=== PATIENT | female | born 1990 | race Caucasian/White ===

== ENCOUNTER 2018-12-01 19:26 | Emergency (ER) | payer MEDICAID ==
[~2018-12-01] VITALS: Ht 162.6 cm; Wt 66.2 kg
[~2018-12-01 19:26] MED LIST: ONDA8TAB6 PO
[2018-12-01] MEDS ORDERED: pantoprazole 40 MG vial IV ONE (20:05)
[2018-12-01] MEDS ORDERED: normal saline 1000ML IV soln IVB ONE (20:05)
[2018-12-01] MEDS ORDERED: metoclopramide 5 mg/ml inj IV ONE (20:05)
[2018-12-01 20:21] LABS: BASOPHILS # (AUTO) 0.1 X10'3 (0-0.2); BASOPHILS % (AUTO) 0.7 % (0-1); EOSINOPHILS # (AUTO) 0.2 X10'3 (0-0.9); EOSINOPHILS % (AUTO) 2.7 % (0-6); HEMATOCRIT 42.9 % (35.0-45.0); HEMOGLOBIN 14.4 g/dl (12.0-16.0); LYMPHOCYTES # (AUTO) 1.9 X10'3 (1.1-4.8); LYMPHOCYTES % (AUTO) 26.3 % (21-51); MEAN CORPUSCULAR HEMOGLOBIN 32.3 PG (27.0-31.0); MEAN CORPUSCULAR HGB CONC 33.7 g/dL (33.0-36.5); MEAN CORPUSCULAR VOLUME 95.9 FL (78-98); MONOCYTES # (AUTO) 0.4 X10'3 (0-0.9); NEUTROPHILS # (AUTO) 4.7 X10'3 (1.8-7.7); NEUTROPHILS % (AUTO) 64.3 % (42-75); PLATELET COUNT 250 X10'3 (140-440); RED BLOOD COUNT 4.47 X10'6 (4.20-5.60); RED CELL DISTRIBUTION WIDTH 12.7 % (11.5-14.5); WHITE BLOOD COUNT 7.4 X10'3 (4.5-11.0)
[2018-12-01 20:26] LABS: CLARITY,URINE CLEAR (Clear); COLOR,URINE YELLOW (Yellow); GLUCOSE, URINE NEGATIVE (Neg); KETONES,URINE NEGATIVE (Neg); LEUKOCYTE ESTERASE ,URINE NEGATIVE (Neg); NITRITES, URINE NEGATIVE (Neg); OCCULT BLOOD,URINE NEGATIVE (Neg); PROTEIN,URINE NEGATIVE (Neg); UROBILINOGEN,URINE 0.2 E.U/dL (0.2-1.0)
[2018-12-01 20:28] LABS: UA COLLECTION TYPE CLN CATCH MIDSTREAM
[2018-12-01 20:29] LABS: URINE HCG NEGATIVE (NEG)
[2018-12-01 20:38] LABS: ALANINE AMINOTRANSFERASE 44 U/L (12-78); ALBUMIN/GLOBULIN RATIO 1.1 (1.1-1.5); ALKALINE PHOSPHATASE 61 IU/L (46-116); ANION GAP 10 (8-16); ASPARTATE AMINO TRANSFERASE 21 U/L (10-37); BILIRUBIN,TOTAL 0.8 MG/DL (0.1-1.0); BLOOD UREA NITROGEN 15 MG/DL (7-18); BUN/CREATININE RATIO 15.8 (6.6-38.0); CHLORIDE 109 MMOL/L (99-107); CREATININE 0.95 MG/DL (0.40-0.90); GLUCOSE 91 MG/DL (70-104); POTASSIUM 3.7 MMOL/L (3.5-5.1); SODIUM 143 MMOL/L (135-145); TOTAL CARBON DIOXIDE 24.1 MMOL/L (24-32); TOTAL PROTEIN 7.6 G/DL (6.4-8.2); eGFR 71 ML/MIN
[2018-12-01] MEDS ORDERED: LIDOcaine Viscous 15ml cup PO ONE (20:45)
[2018-12-01] MEDS ORDERED: sucralfate 1 gm tablet PO ONE (20:45)
[2018-12-01] MEDS ORDERED: mag hydrox/Alum hydrox/simeth 30ml oral suspension PO ONE (20:45)
[2018-12-01] MEDS ORDERED: PANT-47 PO (21:03)
[2018-12-01] MEDS ORDERED: ONDA4TAB6 PO (21:03)
[2018-12-01 21:10] VITALS: BP 115/60
[2019-01-08] MEDS ORDERED: CETI10TA18 PO (12:47)
[2019-01-08] MEDS ORDERED: HYDR50TA65 PO (12:47)
[2019-01-08] MEDS ORDERED: FLUT16SP NAS (12:47)
[2019-01-08] MEDS ORDERED: ESCI20TA38 PO (12:47)
[2019-01-08] MEDS ORDERED: MULT-933 PO (12:47)
[2019-01-08] MEDS ORDERED: ALUM35SO TP (12:47)
[2019-01-08] MEDS ORDERED: ACET-2971 PO (12:47)
[2019-01-08] MEDS ORDERED: DICLOFENAC GEL TP (12:47)
[2019-01-08] MEDS ORDERED: [UNRECOGNIZED DRUG - CODE] (12:47)
[2019-01-08] MEDS ORDERED: GABA-534 PO (12:47)
== END 2018-12-01 21:13 | disposition home or self-care (01) ==
LOC: ER 19:26
DX: K29.70 Gastritis, unspecified, without bleeding (principal); F12.90 Cannabis use, unspecified, uncomplicated
CPT/HCPCS: 36415; 80053; 81003; 81025; 85025; 85610; 96361; 96374; 96375; 99284; C9113; J2765; J7030

== ENCOUNTER 2018-12-03 17:20 | Emergency (ER) | payer MEDICAID ==
[~2018-12-03] VITALS: Ht 162.6 cm; Wt 68.2 kg
[~2018-12-03 17:20] MED LIST changes: +ONDA4TAB6 PO; +PANT-47 PO
[2018-12-03] MEDS ORDERED: normal saline 1000ML IV soln IVB ONE (17:40)
[2018-12-03] MEDS ORDERED: morphine 4 MG/ML inj SYRINge IV PRN (17:40)
[2018-12-03] MEDS ORDERED: ondansetron/PF 4mg/2ml inj IV ONE (17:40)
[2018-12-03 18:10] LABS: BASOPHILS # (AUTO) 0.1 X10'3 (0-0.2); BASOPHILS % (AUTO) 0.7 % (0-1); EOSINOPHILS # (AUTO) 0.2 X10'3 (0-0.9); EOSINOPHILS % (AUTO) 2.3 % (0-6); HEMATOCRIT 41.8 % (35.0-45.0); HEMOGLOBIN 14.2 g/dl (12.0-16.0); LYMPHOCYTES # (AUTO) 2.9 X10'3 (1.1-4.8); LYMPHOCYTES % (AUTO) 33.9 % (21-51); MEAN CORPUSCULAR HEMOGLOBIN 32.2 PG (27.0-31.0); MEAN CORPUSCULAR HGB CONC 34.1 g/dL (33.0-36.5); MEAN CORPUSCULAR VOLUME 94.5 FL (78-98); MEAN PLATELET VOLUME 7.7 FL (7.4-10.4); MONOCYTES # (AUTO) 0.5 X10'3 (0-0.9); MONOCYTES % (AUTO) 6.4 % (2-12); NEUTROPHILS # (AUTO) 4.9 X10'3 (1.8-7.7); NEUTROPHILS % (AUTO) 56.7 % (42-75); PLATELET COUNT 268 X10'3 (140-440); RED BLOOD COUNT 4.42 X10'6 (4.20-5.60); RED CELL DISTRIBUTION WIDTH 12.5 % (11.5-14.5); WHITE BLOOD COUNT 8.6 X10'3 (4.5-11.0)
[2018-12-03 18:22] LABS: ALANINE AMINOTRANSFERASE 39 U/L (12-78); ALBUMIN 4.2 G/DL (3.4-5.0); ALBUMIN/GLOBULIN RATIO 1.2 (1.1-1.5); ALKALINE PHOSPHATASE 54 IU/L (46-116); ANION GAP 9 (8-16); ASPARTATE AMINO TRANSFERASE 18 U/L (10-37); BILIRUBIN,TOTAL 0.5 MG/DL (0.1-1.0); BLOOD UREA NITROGEN 11 MG/DL (7-18); BUN/CREATININE RATIO 10.5 (6.6-38.0); CALCIUM 9.2 MG/DL (8.5-10.1); CHLORIDE 107 MMOL/L (99-107); CREATININE 1.05 MG/DL (0.40-0.90); GLUCOSE 111 MG/DL (70-104); LIPASE 165 U/L (73-393); SODIUM 143 MMOL/L (135-145); TOTAL CARBON DIOXIDE 26.7 MMOL/L (24-32); TOTAL PROTEIN 7.7 G/DL (6.4-8.2); eGFR 63 ML/MIN
[2018-12-03 18:36] LABS: CLARITY,URINE CLEAR (Clear); COLOR,URINE YELLOW (Yellow); GLUCOSE, URINE NEGATIVE (Neg); KETONES,URINE NEGATIVE (Neg); LEUKOCYTE ESTERASE ,URINE NEGATIVE (Neg); NITRITES, URINE NEGATIVE (Neg); OCCULT BLOOD,URINE NEGATIVE (Neg); PH,URINE 5.5 (4.8-8.0); PROTEIN,URINE NEGATIVE (Neg); UROBILINOGEN,URINE 0.2 E.U/dL (0.2-1.0)
[2018-12-03 18:39] LABS: UA COLLECTION TYPE CLN CATCH MIDSTREAM
[2018-12-03] MEDS ORDERED: mag hydrox/Alum hydrox/simeth 30ml oral suspension PO ONE (19:25)
[2018-12-03] MEDS ORDERED: famotidine/PF 10 mg/ml inj IV ONE (19:25)
[2018-12-03] MEDS ORDERED: morphine 4 MG/ML inj SYRINge IV ONE (19:25)
[2018-12-03] MEDS ORDERED: LIDOcaine Viscous 15ml cup PO ONE (19:25)
[2018-12-03] MEDS ORDERED: sucralfate 1 gm tablet PO ONE (19:25)
[2018-12-03] MEDS ORDERED: HYDR-4383 PO (19:55)
[2018-12-03 20:16] VITALS: BP 129/72
[2019-01-08] MEDS ORDERED: FLUT16SP NAS (12:47)
[2019-01-08] MEDS ORDERED: GABA-534 PO (12:47)
[2019-01-08] MEDS ORDERED: ACET-2971 PO (12:47)
[2019-01-08] MEDS ORDERED: HYDR50TA65 PO (12:47)
[2019-01-08] MEDS ORDERED: [UNRECOGNIZED DRUG - CODE] (12:47)
[2019-01-08] MEDS ORDERED: MULT-933 PO (12:47)
[2019-01-08] MEDS ORDERED: ALUM35SO TP (12:47)
[2019-01-08] MEDS ORDERED: DICLOFENAC GEL TP (12:47)
[2019-01-08] MEDS ORDERED: ESCI20TA38 PO (12:47)
[2019-01-08] MEDS ORDERED: CETI10TA18 PO (12:47)
== END 2018-12-03 20:17 | disposition home or self-care (01) ==
LOC: ER 17:20
DX: R10.13 Epigastric pain (principal); R10.11 Right upper quadrant pain; R11.2 Nausea with vomiting, unspecified; R19.7 Diarrhea, unspecified; F12.90 Cannabis use, unspecified, uncomplicated; Z98.890 Other specified postprocedural states; Z79.899 Other long term (current) drug therapy
CPT/HCPCS: 36415; 71045; 74176; 80053; 81003; 83690; 85025; 96361; 96374; 96375; 96376; 99284; J2270; J2405; J3490; J7030

== ENCOUNTER 2018-12-08 12:28 | Emergency (ER) | payer MEDICAID ==
[~2018-12-08] VITALS: Ht 162.6 cm; Wt 65.2 kg
[~2018-12-08 12:28] MED LIST changes: +HYDR-4383 PO
[2018-12-08] MEDS ORDERED: ondansetron/PF 4mg/2ml inj IV ONE (13:55)
[2018-12-08] MEDS ORDERED: normal saline 1000ML IV soln IVB ONE (13:55)
[2018-12-08 14:04] LABS: CLARITY,URINE SLIGHTLY CLOUDY (Clear); COLOR,URINE YELLOW (Yellow); GLUCOSE, URINE NEGATIVE (Neg); KETONES,URINE NEGATIVE (Neg); LEUKOCYTE ESTERASE ,URINE NEGATIVE (Neg); NITRITES, URINE NEGATIVE (Neg); OCCULT BLOOD,URINE NEGATIVE (Neg); PROTEIN,URINE NEGATIVE (Neg); UROBILINOGEN,URINE 0.2 E.U/dL (0.2-1.0)
[2018-12-08 14:05] LABS: URINE HCG NEGATIVE (NEG)
[2018-12-08 14:07] LABS: UA COLLECTION TYPE CLN CATCH MIDSTREAM
[2018-12-08 14:11] LABS: BASOPHILS # (AUTO) 0.1 X10'3 (0-0.2); BASOPHILS % (AUTO) 0.7 % (0-1); EOSINOPHILS # (AUTO) 0.1 X10'3 (0-0.9); EOSINOPHILS % (AUTO) 1.2 % (0-6); HEMATOCRIT 43.5 % (35.0-45.0); HEMOGLOBIN 14.6 g/dl (12.0-16.0); LYMPHOCYTES # (AUTO) 1.9 X10'3 (1.1-4.8); MEAN CORPUSCULAR HEMOGLOBIN 32.3 PG (27.0-31.0); MEAN CORPUSCULAR HGB CONC 33.6 g/dL (33.0-36.5); MEAN CORPUSCULAR VOLUME 96.1 FL (78-98); MONOCYTES # (AUTO) 0.4 X10'3 (0-0.9); NEUTROPHILS % (AUTO) 67.1 % (42-75); PLATELET COUNT 268 X10'3 (140-440); RED BLOOD COUNT 4.53 X10'6 (4.20-5.60); RED CELL DISTRIBUTION WIDTH 12.7 % (11.5-14.5); WHITE BLOOD COUNT 7.4 X10'3 (4.5-11.0)
[2018-12-08 14:19] LABS: BACTERIA,URINE FEW /HPF (Neg); COARSE GRANULAR CAST 0-3 /LPF (NEGATIVE); MUCUS STRANDS MODERATE /LPF (Neg); RBC,URINE NONE SEEN /HPF (0-2); SQUAMOUS EPITHELIAL CELL,UR FEW /LPF (FEW); WBC,URINE 0-4 /HPF (0-4)
[2018-12-08] MEDS: morphine 4 MG/ML inj SYRINge IV PRN ×2 (14:20→15:03)
[2018-12-08 14:26] LABS: ALANINE AMINOTRANSFERASE 24 U/L (12-78); ALBUMIN/GLOBULIN RATIO 1.3 (1.1-1.5); ALKALINE PHOSPHATASE 59 IU/L (46-116); ANION GAP 11 (8-16); ASPARTATE AMINO TRANSFERASE 14 U/L (10-37); BILIRUBIN,TOTAL 0.4 MG/DL (0.1-1.0); BLOOD UREA NITROGEN 14 MG/DL (7-18); BUN/CREATININE RATIO 15.4 (6.6-38.0); CALCIUM 9.3 MG/DL (8.5-10.1); CHLORIDE 108 MMOL/L (99-107); CREATININE 0.91 MG/DL (0.40-0.90); GLUCOSE 92 MG/DL (70-104); LIPASE 111 U/L (73-393); POTASSIUM 3.9 MMOL/L (3.5-5.1); SODIUM 143 MMOL/L (135-145); TOTAL CARBON DIOXIDE 24.2 MMOL/L (24-32); TOTAL PROTEIN 7.2 G/DL (6.4-8.2); eGFR 74 ML/MIN
[2018-12-08] MEDS ORDERED: ONDA4TAB12 PO (15:18)
[2018-12-08 15:34] VITALS: BP 144/58
[2019-01-08] MEDS ORDERED: [UNRECOGNIZED DRUG - CODE] (12:47)
[2019-01-08] MEDS ORDERED: ACET-2971 PO (12:47)
[2019-01-08] MEDS ORDERED: MULT-933 PO (12:47)
[2019-01-08] MEDS ORDERED: ESCI20TA38 PO (12:47)
[2019-01-08] MEDS ORDERED: CETI10TA18 PO (12:47)
[2019-01-08] MEDS ORDERED: ALUM35SO TP (12:47)
[2019-01-08] MEDS ORDERED: FLUT16SP NAS (12:47)
[2019-01-08] MEDS ORDERED: GABA-534 PO (12:47)
[2019-01-08] MEDS ORDERED: HYDR50TA65 PO (12:47)
[2019-01-08] MEDS ORDERED: DICLOFENAC GEL TP (12:47)
== END 2018-12-08 15:35 | disposition home or self-care (01) ==
LOC: ER 12:29
DX: K29.70 Gastritis, unspecified, without bleeding (principal); F12.90 Cannabis use, unspecified, uncomplicated; Z79.899 Other long term (current) drug therapy
CPT/HCPCS: 36415; 76700; 80053; 81001; 81025; 83690; 85025; 96361; 96374; 96375; 96376; 99284; J2270; J2405; J7030

== ENCOUNTER 2019-01-13 05:56 | Inpatient (IN) | payer MEDICAID ==
--- NOTE | 2018-04-17 18:10 | NUR ---
Patient in room [facility]. I have received report from DREA Mehta and had the opportunity to ask questions and assume patient care. Addendum: 01/16/19 at 0644 by Luis Enrique Hernandez RN wrong time, 01/15/19 @ 4907
[2019-01-08 11:58] LABS: BASOPHILS # (AUTO) 0.1 X10'3 (0-0.2); EOSINOPHILS # (AUTO) 0.5 X10'3 (0-0.9); EOSINOPHILS % (AUTO) 7.1 % (0-6); LYMPHOCYTES # (AUTO) 1.8 X10'3 (1.1-4.8); LYMPHOCYTES % (AUTO) 26.5 % (21-51); MEAN CORPUSCULAR HEMOGLOBIN 31.8 PG (27.0-31.0); MEAN CORPUSCULAR HGB CONC 33.7 g/dL (33.0-36.5); MEAN CORPUSCULAR VOLUME 94.2 FL (78-98); MEAN PLATELET VOLUME 8.5 FL (7.4-10.4); MONOCYTES # (AUTO) 0.6 X10'3 (0-0.9); MONOCYTES % (AUTO) 9.2 % (2-12); NEUTROPHILS # (AUTO) 3.9 X10'3 (1.8-7.7); NEUTROPHILS % (AUTO) 56.2 % (42-75); PRE OP HEMATOCRIT 41.9 % (35.0-45.0); PRE OP HEMOGLOBIN 14.1 g/dL (12.0-16.0); PRE OP PLATELET COUNT 209 X10'3 (140-440); RED BLOOD COUNT 4.45 X10'6 (4.20-5.60); RED CELL DISTRIBUTION WIDTH 12.4 % (11.5-14.5)
[2019-01-08 12:12] LABS: ALBUMIN 3.7 G/DL (3.4-5.0); ALBUMIN/GLOBULIN RATIO 1.2 (1.1-1.5); ALKALINE PHOSPHATASE 52 IU/L (46-116); BLOOD UREA NITROGEN 9 MG/DL (7-18); BUN/CREATININE RATIO 9.5 (6.6-38.0); CHLORIDE 107 MMOL/L (99-107); CREATININE 0.95 MG/DL (0.40-0.90); PRE OP ALT 23 U/L (30-65); PRE OP ANION GAP 10 (8-16); PRE OP AST 15 U/L (10-37); PRE OP BILIRUB, TOTAL 0.6 MG/DL (0.0-1.0); PRE OP GLUCOSE 91 MG/DL (70-104); PRE OP SODIUM 144 MMOL/L (135-145); TOTAL CARBON DIOXIDE 27.5 MMOL/L (24-32); TOTAL PROTEIN 6.7 G/DL (6.4-8.2); eGFR 71 ML/MIN
[2019-01-08 12:42] LABS: CLARITY,URINE CLEAR (Clear); COLOR,URINE YELLOW (Yellow); GLUCOSE, URINE NEGATIVE (Neg); KETONES,URINE NEGATIVE (Neg); LEUKOCYTE ESTERASE ,URINE NEGATIVE (Neg); NITRITES, URINE NEGATIVE (Neg); OCCULT BLOOD,URINE NEGATIVE (Neg); PH,URINE 6.5 (4.8-8.0); PROTEIN,URINE NEGATIVE (Neg); UROBILINOGEN,URINE 0.2 E.U/dL (0.2-1.0)
[2019-01-08 12:45] LABS: UA COLLECTION TYPE CLN CATCH MIDSTREAM
[~2019-01-13] VITALS: Ht 162.6 cm; Wt 67.0 kg
[2019-01-13] VITALS (19 sets, daily range): BP systolic 101–137; BP diastolic 37–60
[~2019-01-13 05:56] MED LIST changes: +ACET-2971 PO; +ALUM35SO TP; +CETI10TA18 PO; +DICLOFENAC GEL TP; +ESCI20TA38 PO; +FLUT16SP NAS; +GABA-534 PO; -HYDR-4383 PO; +HYDR50TA65 PO; +MULT-933 PO; -ONDA4TAB6 PO; -ONDA8TAB6 PO; -PANT-47 PO; +[UNRECOGNIZED DRUG - CODE]; +albuterol 2.5 MG/3 ML nebule NEB ONE; +cefazolin/dext.iso 2gm/50ml 50 ML IV ONE; +famotidine 20mg tablet PO ONE; +ringers solution, lacted 1,000 ML IV SCH
[2019-01-13] MEDS ORDERED: LIDOcaine 1% (10mg/ml) 2ml vial ONE (06:31)
[2019-01-13] MEDS ORDERED: BUPIVAcaine 0.5% inj/PF 30 ML ONE ×2 (08:12→09:07)
[2019-01-13] MEDS ORDERED: propofol inj 20 ML IV ONE (08:39)
[2019-01-13] MEDS ORDERED: sevoflurane 250ml liquid IH ONE (08:39)
[2019-01-13] MEDS ORDERED: midazolam 2 mg/2 ml injection ONE (08:39)
[2019-01-13] MEDS ORDERED: fentaNYL /PF 50mcg/ml 5ml ampule ONE (08:39)
[2019-01-13] MEDS ORDERED: ringers solution, lacted 1,000 ML IV SCH (08:42)
[2019-01-13] MEDS ORDERED: proCHLORperazine 10 MG/2 ml inj IV PRN (08:45)
[2019-01-13] MEDS ORDERED: meperidine/PF 25mg/ml syringe IV PRN ×2 (08:45)
[2019-01-13] MEDS ORDERED: morphine 4 MG/ML inj SYRINge IV PRN ×2 (08:45)
[2019-01-13] MEDS ORDERED: ondansetron/PF 4mg/2ml inj IV PRN (08:45)
[2019-01-13] MEDS ORDERED: dexamethasone sod phosphate 4mg/ml inj. ONE (08:52)
[2019-01-13] MEDS ORDERED: ondansetron/PF 4mg/2ml inj ONE (10:08)
[2019-01-13] MEDS ORDERED: acetaminophen 1,000mg/100ml IV 100 ML IV ONE (10:11)
[2019-01-13] MEDS ORDERED: neomy sulf/bacitrac zn/polymixin b oint 14.2 gm tube TP ONE (10:24)
--- NOTE | 2019-01-13 10:34 | NUR ---
Received from OR via , accompanied by Anesthesiologist LAURA and report given by Anesthesiolgist. AWAKE IN NO RESP DISTRESS SKIN WARM AND DRY HOB ELEVATED, ABD SOFT NO DRAINAGE FROM RECTUM. DSG DI, CO PAIN.
[2019-01-13] MEDS: meperidine/PF 25mg/ml syringe IV PRN ×3 (10:45→11:10)
[2019-01-13] MEDS ORDERED: naloxone 0.4 mg/ml inj IV PRN (11:25)
[2019-01-13] MEDS: Potassium Cl inj 20 MEQ in ringers solution, lacted 1,000 ML IV SCH ×2 (11:25→22:10)
--- NOTE | 2019-01-13 11:30 | NUR ---
REPORT FROM SHONNA IN RECOVERY
[2019-01-13] MEDS: HYDROmorphone/NS 1 mg/ml CADD 50 ML IV SCH ×7 (11:56→23:00)
--- NOTE | 2019-01-13 12:10 | NUR ---
PATIENT ON UNIT, VITALS STABLE, SKIN GOOD, ORIENTED PATIENT TO ROOM
--- NOTE | 2019-01-13 12:14 | NUR ---
Report called to receiving nurse. Transferred via BED Belongings . Special Issues communicated to receiving nurse.AWAKE VS WNL PAIN DECREASED AFTER CADD MED. ABD SOFT NO DRAINAGE RECTAL AREA. SCDS ON. TO ROOM 354
[2019-01-13] MEDS: DICLOFENAC TP SCH ×3 (13:00→20:17)
[2019-01-13] MEDS: cetirizine 10mg tablet PO SCH ×2 (13:20→20:18)
[2019-01-13] MEDS: gabapentin 400mg capsule PO SCH ×2 (15:19→23:11)
[2019-01-13] MEDS: ceFAZolin 1GM/D5W- ADD-VANTAGE 50 ML IV SCH ×2 (15:19→23:11)
--- NOTE | 2019-01-13 18:55 | NUR ---
Problems reprioritized. Patient report given, questions answered & plan of care reviewed with
[2019-01-13] MEDS: ESCITALOPRAM OXALATE 5 MG TABLET PO SCH (20:19)
[2019-01-13] MEDS: ondansetron/PF 4mg/2ml inj IV PRN (22:05)
[2019-01-13] MEDS: Melatonin 3mg tablet PO PRN (23:12)
[2019-01-14] VITALS: BP 109/54
[2019-01-14] MEDS: HYDROmorphone/NS 1 mg/ml CADD 50 ML IV SCH ×12 (01:00→23:00)
[2019-01-14] MEDS: Potassium Cl inj 20 MEQ in ringers solution, lacted 1,000 ML IV SCH ×3 (03:35→20:38)
--- NOTE | 2019-01-14 06:00 | NUR ---
RECEIVED REPORT FROM ELAINE SHEPARD
--- NOTE | 2019-01-14 06:33 | NUR ---
Problems reprioritized. Patient report given, questions answered & plan of care reviewed with Janine SHEPARD.
[2019-01-14 07:00] VITALS: BP 97/50
[2019-01-14] MEDS: DICLOFENAC TP SCH ×2 (08:00→13:00)
[2019-01-14] MEDS ORDERED: ESCITALOPRAM OXALATE 5 MG TABLET PO SCH (08:00)
[2019-01-14] MEDS: gabapentin 400mg capsule PO SCH ×3 (08:40→23:11)
[2019-01-14] MEDS: cetirizine 10mg tablet PO SCH ×3 (08:40→20:38)
[2019-01-14] MEDS: ceFAZolin 1GM/D5W- ADD-VANTAGE 50 ML IV SCH (08:40)
[2019-01-14 11:00] VITALS: BP 123/50
[2019-01-14] MEDS: ondansetron/PF 4mg/2ml inj IV PRN ×2 (11:13→20:39)
[2019-01-14] MEDS: benzocaine/benzethon 30gm ointment RC PRN ×2 (14:41→20:39)
--- NOTE | 2019-01-14 18:30 | NUR ---
Problems reprioritized. Patient report given, questions answered & plan of care reviewed with alvin england.
--- NOTE | 2019-01-14 18:35 | NUR ---
Patient in room [facility] 354. I have received report from Janine SHEPARD and had the opportunity to ask questions and assume patient care.
[2019-01-14 20:00] VITALS: BP 118/55
[2019-01-14] MEDS: Melatonin 3mg tablet PO PRN (20:38)
[2019-01-14] MEDS: ESCITALOPRAM OXALATE 5 MG TABLET PO SCH (20:39)
[2019-01-15] VITALS: BP 105/54
[2019-01-15] MEDS: HYDROmorphone/NS 1 mg/ml CADD 50 ML IV SCH ×6 (01:00→11:00)
[2019-01-15] MEDS: Potassium Cl inj 20 MEQ in ringers solution, lacted 1,000 ML IV SCH ×3 (03:50→15:04)
--- NOTE | 2019-01-15 06:42 | NUR ---
Problems reprioritized. Patient report given, questions answered & plan of care reviewed with Janine SHEPARD.
--- NOTE | 2019-01-15 06:48 | NUR ---
Patient in room [facility] 354. I have received report from ELAINE SHEPARD and had the opportunity to ask questions and assume patient care.
[2019-01-15 07:21] VITALS: BP 127/79
[2019-01-15] MEDS: gabapentin 400mg capsule PO SCH ×3 (07:51→23:10)
[2019-01-15] MEDS: benzocaine/benzethon 30gm ointment RC PRN ×3 (07:52→21:23)
[2019-01-15] MEDS: cetirizine 10mg tablet PO SCH ×3 (07:52→21:22)
[2019-01-15] MEDS: ondansetron/PF 4mg/2ml inj IV PRN ×2 (08:59→22:28)
[2019-01-15] MEDS: HYDROcodone/acetaminophen 5mg/325mg tablet PO PRN (16:59)
[2019-01-15] MEDS: CADD PCA waste documentation MC PRN ×2 (17:08→17:10)
[2019-01-15 18:00] VITALS: BP 131/54
--- NOTE | 2019-01-15 18:36 | NUR ---
GAVE REPORT TO TONYA SHEPARD
[2019-01-15] MEDS: HYDROcodone/acetaminophen 10/325mg tab PO PRN (21:22)
[2019-01-15] MEDS: ESCITALOPRAM OXALATE 5 MG TABLET PO SCH (21:22)
[2019-01-16] VITALS: BP 106/60
[2019-01-16] MEDS: Potassium Cl inj 20 MEQ in ringers solution, lacted 1,000 ML IV SCH (02:44)
--- NOTE | 2019-01-16 06:35 | NUR ---
Patient in room [facility]. I have received report from DREA Fowler and had the opportunity to ask questions and assume patient care.
--- NOTE | 2019-01-16 06:44 | NUR ---
Problems reprioritized. Patient report given, questions answered & plan of care reviewed with DREA Caba.
[2019-01-16 07:00] VITALS: BP 120/62
[2019-01-16] MEDS: cetirizine 10mg tablet PO SCH ×3 (08:00→20:27)
[2019-01-16] MEDS: HYDROcodone/acetaminophen 10/325mg tab PO PRN ×3 (08:00→20:27)
[2019-01-16] MEDS: gabapentin 400mg capsule PO SCH ×2 (08:00→17:04)
[2019-01-16] MEDS: benzocaine/benzethon 30gm ointment RC PRN ×3 (09:24→22:57)
[2019-01-16 11:00] VITALS: BP 96/47
[2019-01-16] MEDS: ketorolac trometh. 30mg/ml inj. IV PRN ×2 (13:03→19:13)
[2019-01-16] MEDS: hydrOXYzine 25 MG tablet PO PRN (17:04)
[2019-01-16 18:00] VITALS: BP 104/46
[2019-01-16] MEDS: fluticasone nasal spray 16GM bottle NS SCH (20:46)
[2019-01-16] MEDS: ESCITALOPRAM OXALATE 5 MG TABLET PO SCH (20:46)
[2019-01-17] VITALS: BP 96/46
[2019-01-17] MEDS: gabapentin 400mg capsule PO SCH ×4 (00:26→23:52)
--- NOTE | 2019-01-17 06:31 | NUR ---
Patient in room [facility]. I have received report from DREA Fowler and had the opportunity to ask questions and assume patient care.
--- NOTE | 2019-01-17 06:42 | NUR ---
Problems reprioritized. Patient report given, questions answered & plan of care reviewed with DREA Caba.
[2019-01-17 07:00] VITALS: BP 91/52
[2019-01-17] MEDS: cetirizine 10mg tablet PO SCH ×3 (08:39→20:06)
[2019-01-17] MEDS: fluticasone nasal spray 16GM bottle NS SCH ×2 (08:39→20:07)
[2019-01-17] MEDS: multivitamins, therapeutics tablet PO SCH (08:39)
[2019-01-17] MEDS: ketorolac trometh. 30mg/ml inj. IV PRN ×3 (08:41→23:52)
[2019-01-17] MEDS: HYDROcodone/acetaminophen 10/325mg tab PO PRN ×3 (11:04→20:06)
[2019-01-17 11:30] VITALS: BP 104/57
[2019-01-17] MEDS: hydrOXYzine 25 MG tablet PO PRN ×2 (17:39→23:57)
[2019-01-17] MEDS: benzocaine/benzethon 30gm ointment RC PRN ×2 (17:45→21:28)
--- NOTE | 2019-01-17 18:40 | NUR ---
Problems reprioritized. Patient report given, questions answered & plan of care reviewed with DREA Fowler.
[2019-01-17 19:00] VITALS: BP 108/62
[2019-01-17] MEDS: ESCITALOPRAM OXALATE 5 MG TABLET PO SCH (20:07)
[2019-01-17] MEDS: diatr meglu/diatrizoate 30ml oral sol.-(3 dose) bottle PO SCH (20:07)
[2019-01-18] VITALS: BP 103/44
--- NOTE | 2019-01-18 06:19 | NUR ---
Problems reprioritized. Patient report given, questions answered & plan of care reviewed with DREA Huitron.
[2019-01-18] MEDS: fluticasone nasal spray 16GM bottle NS SCH ×2 (07:17→19:33)
[2019-01-18] MEDS: diatr meglu/diatrizoate 30ml oral sol.-(3 dose) bottle PO SCH ×2 (07:17→10:11)
[2019-01-18] MEDS: gabapentin 400mg capsule PO SCH ×2 (07:18→15:12)
[2019-01-18] MEDS: cetirizine 10mg tablet PO SCH ×3 (07:18→21:19)
[2019-01-18] MEDS: multivitamins, therapeutics tablet PO SCH (07:18)
[2019-01-18] MEDS: HYDROcodone/acetaminophen 10/325mg tab PO PRN ×3 (07:25→19:33)
[2019-01-18 07:32] VITALS: BP 90/25
--- NOTE | 2019-01-18 07:32 | NUR ---
Pt. sleeping while BP was taken with automatic cuff. ACCOUNTS MANAGER did report. Pt. asymptomatic. Will reassess at a later time. Addendum: 01/18/19 at 0733 by Elana Pimentel RN Amended: Links added.
--- NOTE | 2019-01-18 11:00 | NUR ---
CALLED SCOTT IN REGARD TO CT RESULTS, DIET, AND NO RECENT LABS. AWAITING RESPONSE.
[2019-01-18 12:00] VITALS: BP 96/51
[2019-01-18] MEDS: hydrOXYzine 25 MG tablet PO PRN (12:03)
[2019-01-18] MEDS: HYDROcodone/acetaminophen 5mg/325mg tablet PO PRN (15:13)
--- NOTE | 2019-01-18 15:58 | NUR ---
Gave report to Megha SHEPARD
--- NOTE | 2019-01-18 16:00 | NUR ---
Patient in room [facility]. I have received report from Elana SHEPARD and had the opportunity to ask questions and assume patient care. Per Dr Minor pt is to have Sitz baths X4. Pt declined one offered at the start of my shift. She only wanted her norco and gabapentin. She is very regimented with her pain meds and does not like to wait.
--- NOTE | 2019-01-18 16:01 | NUR ---
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 Pt NPO this AM PO 50-75% avg low-residue meals previously. Returned to low-residue/mechanical soft chopped diet this afternoon pending PO tonight. LBM 01/18 per RN today. Labs WNL receiving MVI post-op. Will continue to monitor. Rec: 1. continue low-residue/mechanical soft/chopped per MD 2. monitor for ONS needs if PO declines 3. wt per rx Addendum: 01/18/19 at [address] Amended: Links added.
[2019-01-18] MEDS: benzocaine/benzethon 30gm ointment RC PRN ×2 (17:01→21:21)
--- NOTE | 2019-01-18 18:35 | NUR ---
Problems reprioritized. Patient report given, questions answered & plan of care reviewed with Sona SHEPARD.
--- NOTE | 2019-01-18 18:58 | NUR ---
Patient in room [facility]. I have received report from Megha SHEPARD and had the opportunity to ask questions and assume patient care. Pt is in bed with her support dog and sister at bedside. No signs of distress, will continue to monitor.
[2019-01-18 20:00] VITALS: BP 103/43
[2019-01-18] MEDS: Melatonin 3mg tablet PO PRN (21:19)
[2019-01-18] MEDS: ESCITALOPRAM OXALATE 5 MG TABLET PO SCH (21:20)
[2019-01-19] VITALS: BP 90/55
[2019-01-19] MEDS: gabapentin 400mg capsule PO SCH ×2 (00:24→07:07)
[2019-01-19] MEDS: HYDROcodone/acetaminophen 10/325mg tab PO PRN ×3 (00:24→11:25)
[2019-01-19] MEDS: ondansetron/PF 4mg/2ml inj IV PRN (02:14)
[2019-01-19 06:26] LABS: BASOPHILS % (AUTO) 0.2 % (0-1); EOSINOPHILS # (AUTO) 0.1 X10'3 (0-0.9); EOSINOPHILS % (AUTO) 0.9 % (0-6); HEMATOCRIT 38.9 % (35.0-45.0); HEMOGLOBIN 13.2 g/dl (12.0-16.0); LYMPHOCYTES % (AUTO) 6.2 % (21-51); MEAN CORPUSCULAR HEMOGLOBIN 31.2 PG (27.0-31.0); MEAN CORPUSCULAR HGB CONC 33.8 g/dL (33.0-36.5); MEAN CORPUSCULAR VOLUME 92.2 FL (78-98); MEAN PLATELET VOLUME 8.8 FL (7.4-10.4); MONOCYTES # (AUTO) 1.4 X10'3 (0-0.9); MONOCYTES % (AUTO) 8.7 % (2-12); NEUTROPHILS # (AUTO) 13.5 X10'3 (1.8-7.7); PLATELET COUNT 237 X10'3 (140-440); RED BLOOD COUNT 4.22 X10'6 (4.20-5.60); RED CELL DISTRIBUTION WIDTH 11.9 % (11.5-14.5)
--- NOTE | 2019-01-19 06:29 | NUR ---
Problems reprioritized. Patient report given, questions answered & plan of care reviewed with Savannah SHEPARD and Shayy patient care nursing assistant.
[2019-01-19 06:36] LABS: ALANINE AMINOTRANSFERASE 19 U/L (12-78); ALBUMIN 3.3 G/DL (3.4-5.0); ALBUMIN/GLOBULIN RATIO 0.9 (1.1-1.5); ALKALINE PHOSPHATASE 59 IU/L (46-116); ANION GAP 10 (8-16); ASPARTATE AMINO TRANSFERASE 15 U/L (10-37); BILIRUBIN,TOTAL 0.5 MG/DL (0.1-1.0); BLOOD UREA NITROGEN 10 MG/DL (7-18); BUN/CREATININE RATIO 10.1 (6.6-38.0); CALCIUM 8.4 MG/DL (8.5-10.1); CHLORIDE 106 MMOL/L (99-107); CREATININE 0.99 MG/DL (0.40-0.90); GLUCOSE 118 MG/DL (70-104); POTASSIUM 3.9 MMOL/L (3.5-5.1); SODIUM 141 MMOL/L (135-145); eGFR 67 ML/MIN
--- NOTE | 2019-01-19 06:48 | NUR ---
Patient in room [facility]. I have received report from DREA Magallanes and had the opportunity to ask questions and assume patient care.
[2019-01-19] MEDS: multivitamins, therapeutics tablet PO SCH (07:07)
[2019-01-19] MEDS: cetirizine 10mg tablet PO SCH (07:08)
[2019-01-19 08:00] VITALS: BP 101/50
[2019-01-19] MEDS: fluticasone nasal spray 16GM bottle NS SCH (10:17)
[2019-01-19] MEDS: benzocaine/benzethon 30gm ointment RC PRN (10:22)
[2019-01-19] MEDS ORDERED: HYDR-4353 PO (12:10)
--- NOTE | 2019-01-19 12:29 | NUR ---
Discharge completed on nursing end. IV discontinued. All education completed with acknowledgement from patient of understanding, sitz bath provided. [place] medication scrip given to patient.
--- NOTE | 2019-01-19 13:27 | NUR ---
All belongings taken home with patient. Addendum: 01/19/19 at 1327 by Ani Stoddard RN Amended: Links added.
== END 2019-01-19 12:42 | disposition home or self-care (01) | DRG 231 ==
LOC: PAS 05:56 → SUR 3N 11:25
PROVIDERS: ADMIT Surgery; ATTEND Surgery
PROC: 0DTP0ZZ Resection of Rectum, Open Approach (ICD-10-PCS; principal; 2019-01-13 08:39)
DX: K62.3 Rectal prolapse (principal)
CPT/HCPCS: 36415; 74176; 80053; 81003; 82948; 85025; 86885; 86900; 86901; 86920; A4215; A4618; A6224; A6449; A7000; G0378; J0131; J0690; J1100; J1170; J1885; J2001; J2175; J2250; J2270; J2405; J2704; J3010; J3480; J7120; Q9963; Z7610

== ENCOUNTER 2019-01-23 11:59 | Inpatient (IN) | payer MEDICAID ==
[~2019-01-23] VITALS: Ht 162.6 cm; Wt 63.6 kg
[~2019-01-23 11:59] MED LIST changes: +HYDR-4353 PO; -albuterol 2.5 MG/3 ML nebule NEB ONE; -cefazolin/dext.iso 2gm/50ml 50 ML IV ONE; -famotidine 20mg tablet PO ONE; -ringers solution, lacted 1,000 ML IV SCH
[2019-01-23] MEDS ORDERED: morphine 4 MG/ML inj SYRINge IV ONE ×2 (12:35→15:35)
[2019-01-23] MEDS ORDERED: ondansetron/PF 4mg/2ml inj IV ONE (12:35)
[2019-01-23] MEDS ORDERED: normal saline 1000ml 1,000 ML IV ONE (12:40)
[2019-01-23] MEDS ORDERED: iohexol 300mg/ml 100ml inj. ONE (12:54)
[2019-01-23 13:41] LABS: BASOPHILS # (AUTO) 0.1 X10'3 (0-0.2); BASOPHILS % (AUTO) 0.8 % (0-1); EOSINOPHILS # (AUTO) 0.2 X10'3 (0-0.9); EOSINOPHILS % (AUTO) 1.8 % (0-6); HEMOGLOBIN 12.1 g/dl (12.0-16.0); MEAN CORPUSCULAR HEMOGLOBIN 31.3 PG (27.0-31.0); MEAN CORPUSCULAR HGB CONC 33.7 g/dL (33.0-36.5); MEAN CORPUSCULAR VOLUME 92.7 FL (78-98); MEAN PLATELET VOLUME 8.6 FL (7.4-10.4); MONOCYTES # (AUTO) 1.1 X10'3 (0-0.9); MONOCYTES % (AUTO) 10.9 % (2-12); NEUTROPHILS # (AUTO) 6.7 X10'3 (1.8-7.7); NEUTROPHILS % (AUTO) 66.5 % (42-75); PLATELET COUNT 310 X10'3 (140-440); RED BLOOD COUNT 3.89 X10'6 (4.20-5.60); RED CELL DISTRIBUTION WIDTH 12.1 % (11.5-14.5)
[2019-01-23 13:52] LABS: PARTIAL THROMBOPLASTIN TIME 29 SECONDS (22-32)
[2019-01-23 13:55] LABS: ALANINE AMINOTRANSFERASE 15 U/L (12-78); ALBUMIN/GLOBULIN RATIO 0.7 (1.1-1.5); ALKALINE PHOSPHATASE 67 IU/L (46-116); ANION GAP 13 (8-16); ASPARTATE AMINO TRANSFERASE 12 U/L (10-37); BILIRUBIN,TOTAL 0.3 MG/DL (0.1-1.0); BLOOD UREA NITROGEN 7 MG/DL (7-18); BUN/CREATININE RATIO 9.6 (6.6-38.0); CALCIUM 8.7 MG/DL (8.5-10.1); CHLORIDE 106 MMOL/L (99-107); CREATININE 0.73 MG/DL (0.40-0.90); GLUCOSE 101 MG/DL (70-104); POTASSIUM 3.6 MMOL/L (3.5-5.1); SODIUM 143 MMOL/L (135-145); TOTAL CARBON DIOXIDE 23.8 MMOL/L (24-32); TOTAL PROTEIN 7.2 G/DL (6.4-8.2); eGFR > 90 ML/MIN
[2019-01-23] MEDS ORDERED: CefTRIAXone/D5W-Rocephin 1gm 50 ML IV ONE (15:35)
[2019-01-23] MEDS ORDERED: CETI10TA14 PO (15:46)
[2019-01-23] MEDS ORDERED: MELA3TAB64 PO (15:55)
[2019-01-23] MEDS ORDERED: HYDR-3972 PO (15:55)
[2019-01-23] MEDS ORDERED: FLUT16SP20 NAS (15:55)
[2019-01-23] MEDS ORDERED: DICL100G15 TOP (15:56)
[2019-01-23] MEDS ORDERED: magnesium Cl slow-release 64mg tablet PO PRN (17:45)
[2019-01-23] MEDS ORDERED: magnesium 4gm in 100ml NS 100 ML IV PRN (17:45)
[2019-01-23] MEDS ORDERED: potassium Cl 20 mEq SR tablet PO PRN ×2 (17:45)
[2019-01-23] MEDS ORDERED: acetaminophen 325mg tablet PO PRN (17:45)
[2019-01-23] MEDS ORDERED: magnesium 2GM in 50ml NS 50 ML IV PRN (17:45)
[2019-01-23] MEDS ORDERED: normal saline 1000ml 1,000 ML IV SCH (17:45)
[2019-01-23] MEDS ORDERED: potassium CL 10mEq/100ml bag 100 ML IV PRN ×2 (17:45)
[2019-01-23 18:01] LABS: CLARITY,URINE CLEAR (Clear); COLOR,URINE YELLOW (Yellow); GLUCOSE, URINE NEGATIVE (Neg); KETONES,URINE 15 mg/dl (Neg); LEUKOCYTE ESTERASE ,URINE NEGATIVE (Neg); NITRITES, URINE NEGATIVE (Neg); OCCULT BLOOD,URINE NEGATIVE (Neg); PROTEIN,URINE NEGATIVE (Neg); UROBILINOGEN,URINE 0.2 E.U/dL (0.2-1.0)
[2019-01-23 18:02] LABS: UA COLLECTION TYPE CLN CATCH MIDSTREAM
[2019-01-23] MEDS: DICLOFENAC SODIUM 4 GM TOP SCH ×2 (18:55→23:38)
[2019-01-23] MEDS: hydrOXYzine 25 MG tablet PO PRN (19:01)
--- NOTE | 2019-01-23 19:46 | NUR ---
ANA WINCHESTER AWARE THAT A BED IS NEEDED
[2019-01-23] MEDS: HYDROcodone/acetaminophen 10/325mg tab PO SCH (19:55)
[2019-01-23 20:45] VITALS: BP 112/50
--- NOTE | 2019-01-23 20:45 | NUR ---
PATIENT ADMITTED TO ROOM 354C FROM ER FOR PELVIC PAIN, RECTOVAGINAL FISTULA. PLACED COMFORTABLE IN BED. VITAL SIGNS TAKEN AND RECORDED.
[2019-01-23] MEDS ORDERED: ESCITALOPRAM OXALATE 5 MG TABLET PO ONE (22:10)
[2019-01-23] MEDS: Melatonin 3mg tablet PO SCH (22:13)
[2019-01-23] MEDS: ESCITALOPRAM OXALATE 5 MG TABLET PO SCH (22:13)
[2019-01-23] MEDS: diatr meglu/diatrizoate 30ml oral sol.-(3 dose) bottle PO SCH (22:13)
[2019-01-23] MEDS: cetirizine 10mg tablet PO SCH (22:14)
[2019-01-23] MEDS: gabapentin 400mg capsule PO SCH (23:35)
[2019-01-24] VITALS (21 sets, daily range): BP systolic 106–138; BP diastolic 42–97
[2019-01-24] MEDS: DICLOFENAC SODIUM 4 GM TOP SCH ×4 (02:00→20:00)
[2019-01-24] MEDS: HYDROcodone/acetaminophen 10/325mg tab PO SCH ×4 (02:56→20:00)
[2019-01-24 06:25] LABS: BASOPHILS # (AUTO) 0.1 X10'3 (0-0.2); BASOPHILS % (AUTO) 0.8 % (0-1); EOSINOPHILS # (AUTO) 0.3 X10'3 (0-0.9); EOSINOPHILS % (AUTO) 2.9 % (0-6); HEMATOCRIT 35.4 % (35.0-45.0); HEMOGLOBIN 12.1 g/dl (12.0-16.0); LYMPHOCYTES # (AUTO) 1.8 X10'3 (1.1-4.8); LYMPHOCYTES % (AUTO) 18.4 % (21-51); MEAN CORPUSCULAR HEMOGLOBIN 31.9 PG (27.0-31.0); MEAN CORPUSCULAR HGB CONC 34.3 g/dL (33.0-36.5); MEAN CORPUSCULAR VOLUME 93.1 FL (78-98); MEAN PLATELET VOLUME 9.5 FL (7.4-10.4); MONOCYTES # (AUTO) 1.1 X10'3 (0-0.9); MONOCYTES % (AUTO) 10.8 % (2-12); NEUTROPHILS # (AUTO) 6.6 X10'3 (1.8-7.7); NEUTROPHILS % (AUTO) 67.1 % (42-75); PLATELET COUNT 315 X10'3 (140-440); RED BLOOD COUNT 3.81 X10'6 (4.20-5.60); RED CELL DISTRIBUTION WIDTH 12.2 % (11.5-14.5); WHITE BLOOD COUNT 9.8 X10'3 (4.5-11.0)
--- NOTE | 2019-01-24 06:32 | NUR ---
Problems reprioritized. Patient report given, questions answered & plan of care reviewed with AVNI RN.
--- NOTE | 2019-01-24 06:35 | NUR ---
Patient in room [facility]. I have received report from Lana Schwartz RN and had the opportunity to ask questions and assume patient care.
[2019-01-24 06:41] LABS: ALBUMIN 3.1 G/DL (3.4-5.0); ANION GAP 11 (8-16); BLOOD UREA NITROGEN 6 MG/DL (7-18); BUN/CREATININE RATIO 7.8 (6.6-38.0); CALCIUM 9.3 MG/DL (8.5-10.1); CHLORIDE 106 MMOL/L (99-107); CREATININE 0.77 MG/DL (0.40-0.90); GLUCOSE 90 MG/DL (70-104); MAGNESIUM 1.8 MG/DL (1.5-2.4); POTASSIUM 3.9 MMOL/L (3.5-5.1); SODIUM 142 MMOL/L (135-145); TOTAL CARBON DIOXIDE 25.4 MMOL/L (24-32); eGFR 90 ML/MIN
[2019-01-24] MEDS: K and/or MAG REPLACEMENT MC SCH (08:00)
[2019-01-24] MEDS: multivitamins, therapeutics tablet PO SCH (08:00)
[2019-01-24] MEDS: gabapentin 400mg capsule PO SCH ×2 (08:00→16:00)
[2019-01-24] MEDS: cetirizine 10mg tablet PO SCH ×3 (08:00→21:52)
[2019-01-24] MEDS: diatr meglu/diatrizoate 30ml oral sol.-(3 dose) bottle PO SCH (08:33)
[2019-01-24] MEDS: fluticasone nasal spray 16GM bottle NS SCH (08:34)
[2019-01-24] MEDS ORDERED: FLU VACC QS2019-20 36MOS UP/PF 60 MCG/0.5 ML SYRINGE IMVAC ONE (10:00)
[2019-01-24] MEDS ORDERED: LIDOcaine 1%/PF 5ML 10 MG/ML VIAL SQ ONE ×2 (11:05→11:10)
[2019-01-24] MEDS ORDERED: midazolam 2 mg/2 ml injection IV PRN (11:05)
[2019-01-24] MEDS ORDERED: fentaNYL/PF 50MCG/1 ML 2ML syringe IV PRN (11:05)
[2019-01-24] MEDS ORDERED: fentaNYL/PF 50MCG/1 ML 2ML syringe ONE ×2 (11:12→14:25)
[2019-01-24] MEDS ORDERED: midazolam 2 mg/2 ml injection ONE ×2 (11:12→14:25)
--- NOTE | 2019-01-24 11:15 | NUR ---
Patient reports that she could "feel something dangling" upon assessment, found sutures hanging from pt rectum. Notified Dr. Minor, per Dr. Minor, patient is safe to proceed with IR procedure for drainage of abcess.
[2019-01-24] MEDS ORDERED: ondansetron/PF 4mg/2ml inj IV ONE (11:40)
--- NOTE | 2019-01-24 12:46 | NUR ---
Patient back from IR procedure, vital signs stable 97.9F temp, BP106/52, HR 68, O2 sats 97% on room air RR 14. aunt at bedside will continue to monitor.
[2019-01-24] MEDS: hydrOXYzine 25 MG tablet PO PRN (12:56)
[2019-01-24] MEDS ORDERED: ringers solution, lacted 1,000 ML IV SCH (14:17)
[2019-01-24] MEDS ORDERED: hydrALAZINE 20mg/ml inj. IV PRN (14:20)
[2019-01-24] MEDS ORDERED: ondansetron/PF 4mg/2ml inj IV PRN (14:20)
[2019-01-24] MEDS ORDERED: labetalol 20mg/4ml (5mg/ml) syringe IV PRN (14:20)
[2019-01-24] MEDS ORDERED: HYDROmorphone inj. 0.5 MG/0.5 ML DISP.SYRIN IV PRN ×2 (14:20)
[2019-01-24] MEDS ORDERED: morphine 4 MG/ML inj SYRINge IV PRN (14:20)
[2019-01-24] MEDS ORDERED: HYDROmorphone 2mg/ml vial IV PRN (14:25)
[2019-01-24] MEDS ORDERED: rocuronium 10mg/ml inj IV ONE (14:26)
[2019-01-24] MEDS ORDERED: propofol inj 20 ML IV ONE (14:27)
[2019-01-24] MEDS ORDERED: LIDOcaine 2% (20mg/ml) 5ml vial ONE (14:27)
[2019-01-24] MEDS ORDERED: ondansetron/PF 4mg/2ml inj ONE (14:27)
[2019-01-24] MEDS ORDERED: succinylcholine 20mg/ml inj IV ONE (14:51)
[2019-01-24] MEDS ORDERED: ceFAZolin 1000mg inj ONE ×2 (15:14)
--- NOTE | 2019-01-24 15:20 | NUR ---
Called report to DREA Shirley in recovery. all questions answered.
[2019-01-24] MEDS ORDERED: sugammadex 200mg/2ml injection IV ONE (15:33)
--- NOTE | 2019-01-24 15:47 | NUR ---
Received from OR via , accompanied by Anesthesiologist DR. LOUISE and report given by Anesthesiolgist. pATIETN ARRIVE ON HOSPITAL BED, PAIN 10/10, VSS CHARTED. MORPHINE GIVEN ORDERED. PIV 20 ELIDA TO RIGHT FA INFUSING LR AT 100 ML/HR ORDERED. DIVERTING LOOP COLOSTOMY IN PLACE TO MEDIAL ABD, WITH NO S&S OF BLEEDING, NO PUT PUT NOTED. WILL CONTINUE TO MONITOR.
[2019-01-24] MEDS: morphine 4 MG/ML inj SYRINge IV PRN ×2 (15:52→16:09)
[2019-01-24] MEDS ORDERED: LORazepam 2 mg/ml vial IV ONE (15:55)
--- NOTE | 2019-01-24 16:50 | NUR ---
ALL CRITERIA FOR TRANSFER TO THE FLOOR HAS BEEN ACHIEVED. VSS. BED LOW, CALL LIGHT AND VS. SET IN PLACE. rEPORT CALLED TO EDSON RN ON SURGE ALL QUESTIONS AND CONCERNS ADDRESSED. RN PRESENT TO ACCEPT CARE. PATIENT RESTING COMFORTABLY IN BED. BELONGINGS SENT WITH PATIENT. DRESSINGS CDI.
[2019-01-24] MEDS: HYDROmorphone 1 mg/ml syringe IV PRN ×2 (17:44→21:56)
--- NOTE | 2019-01-24 19:04 | NUR ---
Problems reprioritized. Patient report given, questions answered & plan of care reviewed with Lana Schwartz RN.
--- NOTE | 2019-01-24 19:05 | NUR ---
Patient in room [facility]. I have received report from AVNI SHEPARD and had the opportunity to ask questions and assume patient care.
[2019-01-24] MEDS: normal saline 1000ml 1,000 ML IV SCH (19:30)
[2019-01-24] MEDS: ceFAZolin 1GM/D5W- ADD-VANTAGE 50 ML IV SCH (20:57)
[2019-01-24] MEDS: Melatonin 3mg tablet PO SCH (21:52)
[2019-01-24] MEDS: ESCITALOPRAM OXALATE 5 MG TABLET PO SCH (21:53)
[2019-01-25] VITALS: BP 103/55
[2019-01-25] MEDS: gabapentin 400mg capsule PO SCH ×3 (00:38→16:42)
[2019-01-25] MEDS: HYDROcodone/acetaminophen 10/325mg tab PO SCH ×2 (02:00→08:00)
[2019-01-25] MEDS: DICLOFENAC SODIUM 4 GM TOP SCH ×2 (02:00→08:00)
[2019-01-25] MEDS: normal saline 1000ml 1,000 ML IV SCH ×2 (02:51→15:53)
[2019-01-25] MEDS: HYDROmorphone 1 mg/ml syringe IV PRN ×3 (02:54→12:56)
[2019-01-25 04:00] VITALS: BP 114/53
[2019-01-25] MEDS: ceFAZolin 1GM/D5W- ADD-VANTAGE 50 ML IV SCH ×3 (04:01→16:42)
[2019-01-25] MEDS: ondansetron/PF 4mg/2ml inj IV PRN ×2 (04:06→21:51)
[2019-01-25 06:16] LABS: BASOPHILS % (AUTO) 0.2 % (0-1); EOSINOPHILS % (AUTO) 0 % (0-6); HEMATOCRIT 35.2 % (35.0-45.0); HEMOGLOBIN 11.9 g/dl (12.0-16.0); LYMPHOCYTES # (AUTO) 1.4 X10'3 (1.1-4.8); LYMPHOCYTES % (AUTO) 10.2 % (21-51); MEAN CORPUSCULAR HEMOGLOBIN 31.1 PG (27.0-31.0); MEAN CORPUSCULAR HGB CONC 33.7 g/dL (33.0-36.5); MEAN CORPUSCULAR VOLUME 92.1 FL (78-98); MEAN PLATELET VOLUME 8.5 FL (7.4-10.4); MONOCYTES # (AUTO) 0.9 X10'3 (0-0.9); MONOCYTES % (AUTO) 6.4 % (2-12); NEUTROPHILS # (AUTO) 11.3 X10'3 (1.8-7.7); NEUTROPHILS % (AUTO) 83.2 % (42-75); PLATELET COUNT 347 X10'3 (140-440); RED BLOOD COUNT 3.82 X10'6 (4.20-5.60); RED CELL DISTRIBUTION WIDTH 12.1 % (11.5-14.5); WHITE BLOOD COUNT 13.6 X10'3 (4.5-11.0)
--- NOTE | 2019-01-25 06:25 | NUR ---
Patient in room [facility]. I have received report from Lana Schwartz RN and had the opportunity to ask questions and assume patient care.
[2019-01-25 06:29] LABS: ALBUMIN 2.6 G/DL (3.4-5.0); ANION GAP 9 (8-16); BLOOD UREA NITROGEN 10 MG/DL (7-18); BUN/CREATININE RATIO 13.7 (6.6-38.0); CALCIUM 8.8 MG/DL (8.5-10.1); CHLORIDE 105 MMOL/L (99-107); CREATININE 0.73 MG/DL (0.40-0.90); GLUCOSE 107 MG/DL (70-104); MAGNESIUM 1.6 MG/DL (1.5-2.4); SODIUM 139 MMOL/L (135-145); TOTAL CARBON DIOXIDE 25.2 MMOL/L (24-32); eGFR > 90 ML/MIN
[2019-01-25 07:00] VITALS: BP 98/53
[2019-01-25] MEDS: cetirizine 10mg tablet PO SCH ×3 (07:52→21:41)
[2019-01-25] MEDS: multivitamins, therapeutics tablet PO SCH (07:52)
[2019-01-25] MEDS: fluticasone nasal spray 16GM bottle NS SCH (07:53)
[2019-01-25] MEDS: K and/or MAG REPLACEMENT MC SCH (08:00)
--- NOTE | 2019-01-25 10:01 | NUR ---
Patient reports small amount of blood in patient's urine and draining from vaginal area-BP 103/50, HR 77 and O2 99% on room air. Patient asymptomatic. will continue to monitor.
[2019-01-25 11:00] VITALS: BP 102/56
--- NOTE | 2019-01-25 11:00 | NUR ---
Dr. Minor aware of pt's bloody discharge and blood in urine. Will continue to monitor. Addendum: 01/25/19 at 1854 by Jessica Fenton RN Dr. Minor states this is to be expected-no further orders.
--- NOTE | 2019-01-25 13:00 | NUR ---
Notified Dr. Minor of pt's intense pain at stoma site, and appearance of stoma (Dark red colon visible in the center of raised, textured, major colored tissue that appears edematous.). Sanguinous/serous drainage in intact appliance. Pt stated gas was expressed from bag this morning. Dr. Minor states the description of the stoma is as expected, order given for Elida LOVETT, and MD stated he will round on pt this afternoon. Patient and primary RN, Og, aware of orders.
[2019-01-25] MEDS ORDERED: HYDROmorphone/NS 1 mg/ml CADD 50 ML IV SCH (13:16)
[2019-01-25] MEDS ORDERED: CADD PCA waste documentation MC SCH (13:20)
[2019-01-25] MEDS: HYDROmorphone/NS 1 mg/ml CADD 50 ML IV SCH ×5 (15:50→23:00)
--- NOTE | 2019-01-25 18:54 | NUR ---
Problems reprioritized. Patient report given, questions answered & plan of care reviewed with Cierra RN.
[2019-01-25 19:30] VITALS: BP 116/62
--- NOTE | 2019-01-25 19:30 | NUR ---
pt states that the toilet paper is now pink (not red) when she wipes after voiding Addendum: 01/26/19 at 0221 by Kitty Romero RN Amended: Links added.
[2019-01-25] MEDS: diatr meglu/diatrizoate 30ml oral sol.-(3 dose) bottle PO SCH (21:00)
[2019-01-25] MEDS: lactobacillus rhamnosus 10,000 MMU CELLS/CAPSULE PO SCH (21:41)
[2019-01-25] MEDS: Melatonin 3mg tablet PO SCH (21:42)
[2019-01-25] MEDS: ESCITALOPRAM OXALATE 5 MG TABLET PO SCH (21:42)
[2019-01-25] MEDS ORDERED: ketorolac tromethamine 15mg/ml inj. IV ONE (22:00)
[2019-01-26] VITALS: BP 107/52
[2019-01-26] MEDS: ceFAZolin 1GM/D5W- ADD-VANTAGE 50 ML IV SCH ×4 (00:22→23:49)
[2019-01-26] MEDS: gabapentin 400mg capsule PO SCH ×4 (00:22→23:49)
[2019-01-26] MEDS: HYDROmorphone/NS 1 mg/ml CADD 50 ML IV SCH ×12 (01:00→23:00)
[2019-01-26] MEDS: normal saline 1000ml 1,000 ML IV SCH ×3 (01:30→16:42)
[2019-01-26 06:26] LABS: BASOPHILS # (AUTO) 0.1 X10'3 (0-0.2); BASOPHILS % (AUTO) 0.7 % (0-1); EOSINOPHILS # (AUTO) 0.1 X10'3 (0-0.9); EOSINOPHILS % (AUTO) 1.2 % (0-6); HEMATOCRIT 32.5 % (35.0-45.0); LYMPHOCYTES # (AUTO) 2.4 X10'3 (1.1-4.8); MEAN CORPUSCULAR HEMOGLOBIN 31.3 PG (27.0-31.0); MEAN CORPUSCULAR VOLUME 92.2 FL (78-98); MEAN PLATELET VOLUME 8.6 FL (7.4-10.4); MONOCYTES # (AUTO) 1.1 X10'3 (0-0.9); MONOCYTES % (AUTO) 9.2 % (2-12); NEUTROPHILS # (AUTO) 8.3 X10'3 (1.8-7.7); NEUTROPHILS % (AUTO) 68.9 % (42-75); PLATELET COUNT 317 X10'3 (140-440); RED BLOOD COUNT 3.52 X10'6 (4.20-5.60); RED CELL DISTRIBUTION WIDTH 12.2 % (11.5-14.5); WHITE BLOOD COUNT 12.1 X10'3 (4.5-11.0)
--- NOTE | 2019-01-26 06:30 | NUR ---
Patient in room [facility]. I have received report from Pat RN and had the opportunity to ask questions and assume patient care.
[2019-01-26 06:44] LABS: ALBUMIN 2.5 G/DL (3.4-5.0); ANION GAP 7 (8-16); BLOOD UREA NITROGEN 5 MG/DL (7-18); BUN/CREATININE RATIO 7.1 (6.6-38.0); CALCIUM 8.5 MG/DL (8.5-10.1); CHLORIDE 105 MMOL/L (99-107); GLUCOSE 102 MG/DL (70-104); MAGNESIUM 1.5 MG/DL (1.5-2.4); POTASSIUM 3.4 MMOL/L (3.5-5.1); SODIUM 140 MMOL/L (135-145); TOTAL CARBON DIOXIDE 27.8 MMOL/L (24-32); eGFR > 90 ML/MIN
[2019-01-26 08:00] VITALS: BP 112/56
[2019-01-26] MEDS: K and/or MAG REPLACEMENT MC SCH (08:00)
[2019-01-26] MEDS ORDERED: ALUMINUM CHLORIDE TOP SCH (08:00)
[2019-01-26] MEDS: multivitamins, therapeutics tablet PO SCH (08:15)
[2019-01-26] MEDS: cetirizine 10mg tablet PO SCH ×3 (08:15→20:51)
[2019-01-26] MEDS: lactobacillus rhamnosus 10,000 MMU CELLS/CAPSULE PO SCH ×2 (08:15→20:51)
[2019-01-26] MEDS: ondansetron/PF 4mg/2ml inj IV PRN ×3 (08:15→20:56)
[2019-01-26] MEDS: fluticasone nasal spray 16GM bottle NS SCH (08:16)
[2019-01-26 12:00] VITALS: BP 113/66
--- NOTE | 2019-01-26 18:30 | NUR ---
Patient in room [facility]. I have received report from BARRERA SHEPARD and had the opportunity to ask questions and assume patient care.
--- NOTE | 2019-01-26 19:55 | NUR ---
Problems reprioritized. Patient report given, questions answered & plan of care reviewed with Araujo RN.
[2019-01-26 20:00] VITALS: BP 115/62
[2019-01-26] MEDS: Melatonin 3mg tablet PO SCH (20:51)
[2019-01-26] MEDS: ESCITALOPRAM OXALATE 5 MG TABLET PO SCH (20:52)
[2019-01-27] VITALS: BP 115/54
[2019-01-27] MEDS: HYDROmorphone/NS 1 mg/ml CADD 50 ML IV SCH ×12 (01:00→23:00)
[2019-01-27] MEDS: normal saline 1000ml 1,000 ML IV SCH ×3 (05:17→23:33)
[2019-01-27 05:34] LABS: ALBUMIN 2.5 G/DL (3.4-5.0); ANION GAP 4 (8-16); BLOOD UREA NITROGEN 2 MG/DL (7-18); BUN/CREATININE RATIO 2.9 (6.6-38.0); CALCIUM 8.6 MG/DL (8.5-10.1); CHLORIDE 106 MMOL/L (99-107); GLUCOSE 87 MG/DL (70-104); MAGNESIUM 1.6 MG/DL (1.5-2.4); POTASSIUM 3.8 MMOL/L (3.5-5.1); SODIUM 142 MMOL/L (135-145); TOTAL CARBON DIOXIDE 31.9 MMOL/L (24-32); eGFR > 90 ML/MIN
[2019-01-27 05:35] LABS: BASOPHILS % (AUTO) 0.4 % (0-1); EOSINOPHILS # (AUTO) 0.3 X10'3 (0-0.9); EOSINOPHILS % (AUTO) 2.9 % (0-6); HEMATOCRIT 33.9 % (35.0-45.0); HEMOGLOBIN 11.7 g/dl (12.0-16.0); LYMPHOCYTES # (AUTO) 2.4 X10'3 (1.1-4.8); LYMPHOCYTES % (AUTO) 22.2 % (21-51); MEAN CORPUSCULAR HEMOGLOBIN 31.5 PG (27.0-31.0); MEAN CORPUSCULAR HGB CONC 34.5 g/dL (33.0-36.5); MEAN CORPUSCULAR VOLUME 91.2 FL (78-98); MEAN PLATELET VOLUME 8.1 FL (7.4-10.4); MONOCYTES # (AUTO) 1.1 X10'3 (0-0.9); NEUTROPHILS % (AUTO) 64.5 % (42-75); PLATELET COUNT 350 X10'3 (140-440); RED BLOOD COUNT 3.72 X10'6 (4.20-5.60); RED CELL DISTRIBUTION WIDTH 12.2 % (11.5-14.5); WHITE BLOOD COUNT 10.9 X10'3 (4.5-11.0)
--- NOTE | 2019-01-27 06:10 | NUR ---
Problems reprioritized. Patient report given, questions answered & plan of care reviewed with BARRERA SHEPARD.
--- NOTE | 2019-01-27 06:41 | NUR ---
Patient in room [facility]. I have received report from Lana Schwartz RN and had the opportunity to ask questions and assume patient care.
[2019-01-27 08:00] VITALS: BP 110/61
[2019-01-27] MEDS: K and/or MAG REPLACEMENT MC SCH (08:00)
[2019-01-27] MEDS: ceFAZolin 1GM/D5W- ADD-VANTAGE 50 ML IV SCH ×3 (08:28→23:33)
[2019-01-27] MEDS: gabapentin 400mg capsule PO SCH ×3 (08:28→23:33)
[2019-01-27] MEDS: lactobacillus rhamnosus 10,000 MMU CELLS/CAPSULE PO SCH ×2 (08:28→20:57)
[2019-01-27] MEDS: cetirizine 10mg tablet PO SCH ×3 (08:28→20:57)
[2019-01-27] MEDS: multivitamins, therapeutics tablet PO SCH (08:28)
[2019-01-27] MEDS: fluticasone nasal spray 16GM bottle NS SCH (08:29)
[2019-01-27 12:00] VITALS: BP 112/67
--- NOTE | 2019-01-27 15:23 | NUR ---
Wound care POC. received report from patient's primary nurse that the colostomy bag is leaking. Arrived at bedside and changed bag. Educated pt during tx and will continue education to encourage her to participate in the care of her stoma. Pt tolerated procedure well.
[2019-01-27 20:00] VITALS: BP 117/57
[2019-01-27] MEDS: ESCITALOPRAM OXALATE 5 MG TABLET PO SCH (20:58)
[2019-01-27] MEDS: Melatonin 3mg tablet PO SCH (20:58)
[2019-01-27] MEDS: ondansetron/PF 4mg/2ml inj IV PRN (20:58)
[2019-01-28] VITALS: BP 89/41
--- NOTE | 2019-01-28 00:14 | NUR ---
Colostomy bag leaking. Replaced. Pt painful and crying during change.
[2019-01-28 00:30] VITALS: BP 96/47
[2019-01-28] MEDS: HYDROmorphone/NS 1 mg/ml CADD 50 ML IV SCH ×6 (01:00→11:00)
[2019-01-28 06:00] LABS: BASOPHILS # (AUTO) 0.1 X10'3 (0-0.2); BASOPHILS % (AUTO) 0.6 % (0-1); EOSINOPHILS # (AUTO) 0.4 X10'3 (0-0.9); EOSINOPHILS % (AUTO) 3.5 % (0-6); HEMATOCRIT 35.7 % (35.0-45.0); HEMOGLOBIN 12.3 g/dl (12.0-16.0); LYMPHOCYTES # (AUTO) 3.1 X10'3 (1.1-4.8); LYMPHOCYTES % (AUTO) 28.3 % (21-51); MEAN CORPUSCULAR HEMOGLOBIN 31.5 PG (27.0-31.0); MEAN CORPUSCULAR HGB CONC 34.3 g/dL (33.0-36.5); MEAN CORPUSCULAR VOLUME 91.8 FL (78-98); MEAN PLATELET VOLUME 8.4 FL (7.4-10.4); MONOCYTES # (AUTO) 0.9 X10'3 (0-0.9); MONOCYTES % (AUTO) 8.3 % (2-12); NEUTROPHILS # (AUTO) 6.4 X10'3 (1.8-7.7); NEUTROPHILS % (AUTO) 59.3 % (42-75); PLATELET COUNT 409 X10'3 (140-440); RED BLOOD COUNT 3.89 X10'6 (4.20-5.60); WHITE BLOOD COUNT 10.8 X10'3 (4.5-11.0)
[2019-01-28 06:06] LABS: ALBUMIN 2.6 G/DL (3.4-5.0); ANION GAP 7 (8-16); BLOOD UREA NITROGEN 2 MG/DL (7-18); BUN/CREATININE RATIO 2.7 (6.6-38.0); CHLORIDE 107 MMOL/L (99-107); CREATININE 0.74 MG/DL (0.40-0.90); GLUCOSE 98 MG/DL (70-104); MAGNESIUM 1.7 MG/DL (1.5-2.4); POTASSIUM 3.8 MMOL/L (3.5-5.1); SODIUM 147 MMOL/L (135-145); TOTAL CARBON DIOXIDE 32.7 MMOL/L (24-32); eGFR > 90 ML/MIN
--- NOTE | 2019-01-28 06:49 | NUR ---
Problems reprioritized. Patient report given, questions answered & plan of care reviewed with DREA Rios.
[2019-01-28 07:00] VITALS: BP 104/56
--- NOTE | 2019-01-28 07:18 | NUR ---
Patient in room [facility]. I have received report from FUNMI SHEPARD and had the opportunity to ask questions and assume patient care.
[2019-01-28] MEDS: K and/or MAG REPLACEMENT MC SCH (08:00)
[2019-01-28] MEDS: ceFAZolin 1GM/D5W- ADD-VANTAGE 50 ML IV SCH ×2 (08:31→15:18)
[2019-01-28] MEDS: fluticasone nasal spray 16GM bottle NS SCH (08:32)
[2019-01-28] MEDS: multivitamins, therapeutics tablet PO SCH (08:33)
[2019-01-28] MEDS: gabapentin 400mg capsule PO SCH ×2 (08:33→15:18)
[2019-01-28] MEDS: cetirizine 10mg tablet PO SCH ×3 (08:33→20:15)
[2019-01-28] MEDS: lactobacillus rhamnosus 10,000 MMU CELLS/CAPSULE PO SCH ×2 (08:33→19:16)
[2019-01-28] MEDS: ondansetron/PF 4mg/2ml inj IV PRN (08:42)
[2019-01-28 11:00] VITALS: BP_SYST 120; BP_SYST 121; BP_DIAS 47; BP_DIAS 74
[2019-01-28] MEDS: normal saline 1000ml 1,000 ML IV SCH (12:25)
[2019-01-28] MEDS: HYDROcodone/acetaminophen 10/325mg tab PO PRN ×2 (14:02→19:16)
[2019-01-28] MEDS: hydrOXYzine 25 MG tablet PO PRN (15:18)
--- NOTE | 2019-01-28 16:38 | NUR ---
Consult re: colostomy education. Patient is s/p sigmoidoscopy with diverting loop colostomy after developing an abscess and rectal genital fistula following transanal proctectomy. Patient was receiving clear liquids from nursing staff which patient was tolerating, her diet advanced yesterday evening to mechanical soft then corrected to low fiber diet this morning. Patient was seen by dietary staff for menu selections. She is also receiving strawberry glucerna with each meal. Patient seen by RD and given written colostomy education handout with verbal review, patient was able to teach back the information given and verbalized understanding. Given RD contact information if she has questions. Appetite is improving. Will continue to follow. Recommend: 1. continue low fiber diet 2. Recommend glucerna- [place] with meals 3. Weight per rx Addendum: 01/28/19 at [address] Amended: Links added.
--- NOTE | 2019-01-28 19:13 | NUR ---
patient up and about seen by Dr Minor. Elida landrum DC patient commenced on [place] with effect . Patient is assisting with colostomy care.Appears stable at this time. Report given to Eunice SHEPARD
[2019-01-28 19:30] VITALS: BP 101/62
[2019-01-28] MEDS: Melatonin 3mg tablet PO SCH (20:15)
[2019-01-28] MEDS: ESCITALOPRAM OXALATE 5 MG TABLET PO SCH (20:15)
[2019-01-28 23:30] VITALS: BP 103/58
[2019-01-29] MEDS: HYDROcodone/acetaminophen 10/325mg tab PO PRN ×6 (00:04→21:18)
[2019-01-29] MEDS: ceFAZolin 1GM/D5W- ADD-VANTAGE 50 ML IV SCH ×3 (00:04→15:50)
[2019-01-29] MEDS: gabapentin 400mg capsule PO SCH ×3 (00:04→15:50)
[2019-01-29] MEDS: normal saline 1000ml 1,000 ML IV SCH ×3 (00:11→21:19)
[2019-01-29] MEDS: HYDROmorphone 1 mg/ml syringe IV PRN (03:02)
--- NOTE | 2019-01-29 07:06 | NUR ---
Patient in room [facility]. I have received report from PAT RN and had the opportunity to ask questions and assume patient care.
[2019-01-29] MEDS: fluticasone nasal spray 16GM bottle NS SCH (07:43)
[2019-01-29] MEDS: multivitamins, therapeutics tablet PO SCH (07:44)
[2019-01-29] MEDS: cetirizine 10mg tablet PO SCH ×3 (07:45→21:08)
[2019-01-29] MEDS: lactobacillus rhamnosus 10,000 MMU CELLS/CAPSULE PO SCH ×2 (07:45→21:08)
[2019-01-29] MEDS: K and/or MAG REPLACEMENT MC SCH (08:00)
[2019-01-29] MEDS: ondansetron/PF 4mg/2ml inj IV PRN ×2 (09:17→17:10)
--- NOTE | 2019-01-29 09:23 | NUR ---
OSTOMY FACTS: Almost everyone has know of, or met, businessmen, entertainers, athletes, and people from all walks of life who have an ostomy. Ostomates (a person that has an ostomy) can ski, ride horses, bowl, and get healthy exercise in countless ways. Your usual activities of daily living can be resumed as soon as you are able. Gradually you will be able to wear the clothes worn before surgery. With modern pouches, nothing is noticeable under your clothing. It may be difficult at first to believe that an intimate relationship can be possible when one's body has been disfigured by surgery. This is not true. Love, fortunately, is not easily destroyed when it is based on genuine appreciation of a person as a thinking, feeling, reacting human being. AN OSTOMY IS NOT AN IMPAIRMENT!! DEFINITIONS: 1.OSTOMY: An opening that is created by a surgical procedure. The opening is called a "stoma". 2.STOMA: A surgical opening in the abdomen (belly) where intestine is brought through the abdominal wall and connected at the skin level. A stoma is shiny, wet and at first is dark purple but eventually turns pink, similar to the inside lining of your mouth. 3.COLON: A portion of the large bowel. 4.COLOSTOMY: A fecal diversion with an opening, (stoma) created anywhere along the colon. Making a connection between the colon and the abdominal wall. 5.ILLEOSTOMY: A fecal diversion with an opening, (stoma) created in the small intestine. Making a connection between the small intestine and the abdominal wall. 6.UROSTOMY: A urinary diversion with the ureters connected to a segment of the small bowel and one end is brought out and connected to the abdominal wall, creating a stoma. SHAPES and SIZES: "The stoma is usually round or oval. "It is anywhere from a dime to half dollar in size. "A stoma reaches its permanent size 6-8 weeks after surgery. PRODUCTS: 1.POUCH or APPLIANCE: An external device to contain stool or urine output and protect the skin around the stoma. It can be a one piece pouch or two pieces (a pouch and a wafer). 2.BARRIER: Substance that is used to protect the skin around the stoma from drainage and adhesive. 3.SKIN PREP or SEALANT: Product applied to the skin to reduce injury from moisture, drainage, or repeated pouch removal. Available in spray or wipes. 4.CLOSURE or CLAMP: A device used to close the bottom of a drainable pouch. 5.BRIDGE or SEMAJ: A piece of plastic placed under a loop of bowel on the skins surface, to secure the bowel in place while the skin heals. POUCH CHANGE PROCEEDURE: 1.Assemble all the supplies "1 or 2 piece appliance "Ostomy paste (if needed) "Ostomy powder (if needed) "Skin prep wipes ( not recommended with coloplast products) "Moist wash cloth or cotton balls 2.Remove plastic center and paper backing from pouch. If pouch or wafer is not precut, use the sizing guide, or plastic backing from pouch to make a pattern. Do this by placing the paper over the stoma and trace it, or draw a pattern. Cut the wafer to fit and set it aside. 3.Remove old pouch by lifting up on tape while pressing skin down away from the tape. If there is a clip on your pouch, remove it and save it. 4.Clean skin or stoma with moistened wash cloth or cotton balls. Place a clean cotton ball over stoma hole to catch any drainage. Let skin dry. 5.For grooves or uneven areas in the skin- apply ostomy paste and sprinkle with ostomy powder, then gently shape the past so the area around the stoma is smooth and as flat as possible. Wipe off or blow away excess. Blot powder with skin prep wipe (DO NOT wipe powder). Let dry until no longer sticky. 6.For irritated or reddened skin- sprinkle ostomy powder on red or irritated area. Wipe off or blow away excess. Blot powder with skin prep wipe (DO NOT wipe powder). Let dry until no longer sticky. 7.Apply skin prep wipe to skin to which the pouch and tape will adhere. Let dry until no longer sticky. 8.If you have a one piece appliance- apply pouch so it is centered around the stoma. No skin should be exposed to stool. All skin should be covered by paste or pouch. 9.If you have a two piece appliance- Apply the wafer as described above, then snap or stick pouch onto wafer. Check to make sure wafer and pouch are securely connected. 10.Place clip on bottom of pouch. 11.Empty pouch when 1/3 full. OSTOMY SKIN CARE: "Good health care and nutrition are essential for healthy skin. "Usually a correct pouch size will prevent skin breakdown. "Use warm water and soap for skin cleansing. "Do not use creams or oil based products on skin around the stoma. This will prevent the appliance from sticking. "Use skin prep around the stoma. IT CAN TAKE 24 HOURS TO SEVERAL DAYS FOR SKIN TO HEAL. IF IT IS NOT RESOLVING, OR GETTING WORSE, CALL YOUR PRIMARY CARE DOCTOR. Addendum: 01/29/19 at 8125 by Sarah Gutierrez RN Amended: Links added.
--- NOTE | 2019-01-29 09:26 | NUR ---
Wound care POC. Arrived at bedside for assessment of ostomy appliance and education for bag change. Explained procedure to pt and pt gave informed verbal consent. Pt is alert and reports pain around the stoma. CADD was discontinued yesterday and pt states she received MS and PO [place] this AM. She was able to remove the ostomy bag and begin cleansing the peristomal skin. She became emotional and was unable to complete the application of the appliance. Educated her through the application and answered all questions bedside. Will continue to monitor and educate.
[2019-01-29] MEDS ORDERED: HYDROmorphone 1 mg/ml syringe IV PRN (12:10)
[2019-01-29 12:43] VITALS: BP 95/52
--- NOTE | 2019-01-29 16:44 | NUR ---
Student documentation: I have reviewed all interventions, assessments performed and documented by Mckenzie CHICAS
--- NOTE | 2019-01-29 16:45 | NUR ---
Student Medication Administration: For this medication-pass time frame, all medication were reviewed, dispensed, administered and documented per hospital policy by Mckenzie CHICAS
[2019-01-29] MEDS: hydrOXYzine 25 MG tablet PO PRN (17:10)
[2019-01-29 18:00] VITALS: BP 114/60
--- NOTE | 2019-01-29 18:50 | NUR ---
patient seen by Dr hebert and wound team, assisted with colostomy, up ambulating in [facility] DC commenced on norco with effect. Family into see patient . Report given to teresa SHEPARD
[2019-01-29] MEDS: Melatonin 3mg tablet PO SCH (21:09)
[2019-01-29] MEDS: ESCITALOPRAM OXALATE 5 MG TABLET PO SCH (21:09)
[2019-01-30] MEDS: ceFAZolin 1GM/D5W- ADD-VANTAGE 50 ML IV SCH ×2 (00:27→08:34)
[2019-01-30] MEDS: gabapentin 400mg capsule PO SCH ×2 (00:27→08:34)
[2019-01-30] MEDS: HYDROcodone/acetaminophen 10/325mg tab PO PRN ×2 (04:29→13:27)
[2019-01-30] MEDS: hydrOXYzine 25 MG tablet PO PRN (04:35)
[2019-01-30] MEDS: normal saline 1000ml 1,000 ML IV SCH (04:36)
--- NOTE | 2019-01-30 06:33 | NUR ---
Problems reprioritized. Patient report given, questions answered & plan of care reviewed with Carlos Manuel SHEPARD. Addendum: 01/30/19 at 0634 by Nica Brewer RN Amended: Links added.
--- NOTE | 2019-01-30 06:37 | NUR ---
Patient in room [facility]. I have received report from Nica SHEPARD and had the opportunity to ask questions and assume patient care.
[2019-01-30 08:00] VITALS: BP 92/50
[2019-01-30] MEDS: K and/or MAG REPLACEMENT MC SCH (08:00)
[2019-01-30] MEDS: lactobacillus rhamnosus 10,000 MMU CELLS/CAPSULE PO SCH (08:34)
[2019-01-30] MEDS: multivitamins, therapeutics tablet PO SCH (08:34)
[2019-01-30] MEDS: cetirizine 10mg tablet PO SCH ×2 (08:34→12:10)
[2019-01-30] MEDS: fluticasone nasal spray 16GM bottle NS SCH (08:34)
--- NOTE | 2019-01-30 10:24 | NUR ---
Wound care POC. Arrived at bedside for teaching and possible ostomy bag change if indicated. Pt unsure of discharge plan at this time. She states she does not want to change the bag this encounter and says she feels that she can replace the bag if needed when she leaves. Educated her on the supplies and follow up depending on what CM is able to set up for her. It has been communicated that she will need further support and instruction on caring for the ostomy at home as she has not been emotionally ready to perform all care herself yet as well as the amount of pain she has been in making ostomy bag application more difficult.
--- NOTE | 2019-01-30 10:58 | NUR ---
Dr. Minor rounded and stated pt is ready for discharge to home today. [facility] to see pt ostomy teaching and care, pt is to f/u in Iván's office next week, a prescription for [place] can be obtained from Dr Minor before pt's hospital departure, and the ostomy bridge may be dc'd by [facility] w/ bag change today if due. stated that it is time the bridge be removed and if not done before leaving hospital then [facility] to remove it on first visit 01/31. HARRIS, Magi, and Sherine SWAIN, and primary RN, Judy, notified.
[2019-01-30 11:00] VITALS: BP 108/77
[2019-01-30] MEDS: ondansetron/PF 4mg/2ml inj IV PRN (11:27)
--- NOTE | 2019-01-30 11:30 | NUR ---
Patient to be discharged today. Wound care was asked to come change the bag and remove the guanakito per Dr. Minor's orders. The patient agreed to have us change the bag and remove the [place]anakito. The stoma is large, good color. There were sutures in place. They were removed with a suture removal kit and all skin areas were cleaned. Then a new bag was placed. Instructions given to patient. resources given to patient. Patient has good understanding of care of ostomy. Case management to have nurse out to visit for follow up. Patient will be set up on [employer] starter kits.
[2019-01-30] MEDS ORDERED: NUT.TX.GLUC.INTOLER,LAC-FR,SOY (GLUCERNA) 237 ML PO SCH (13:00)
--- NOTE | 2019-01-30 14:10 | NUR ---
Patient is stable for discharge per md orders, discharge instructions reviewed w/ pt and grandfather and all questions answered, Hard script given to pt for [place], PIV removed and clean dry dressing in place, Pt is wheeled down to lobby with hospital staff, pt discharges at 1400 w/ grandfather in private vehicle, all belongings w/ pt at time of discharge.
== END 2019-01-30 14:05 | disposition home health service (06) | DRG 231 ==
LOC: ER 11:59 → ED HOLD 17:45 → SUR 3N 20:40
PROVIDERS: ADMIT Internal Medicine; ATTEND Internal Medicine
PROC: BW211ZZ Computerized Tomography (CT Scan) of Abdomen and Pelvis using Low Osmolar Contrast (ICD-10-PCS; 2019-01-23)
PROC: 0D1L0Z4 Bypass Transverse Colon to Cutaneous, Open Approach (ICD-10-PCS; 2019-01-24)
PROC: 0DJD8ZZ Inspection of Lower Intestinal Tract, Via Natural or Artificial Opening Endoscopic (ICD-10-PCS; 2019-01-24)
PROC: 3E02340 Introduction of Influenza Vaccine into Muscle, Percutaneous Approach (ICD-10-PCS; principal; 2019-01-24 15:09)
DX: K91.89 Other postprocedural complications and disorders of digestive system (principal); G62.9 Polyneuropathy, unspecified; N82.3 Fistula of vagina to large intestine; D72.829 Elevated white blood cell count, unspecified; Y83.8 Other surgical procedures as the cause of abnormal reaction of the patient, or of later complication, without mention of misadventure at the time of the procedure; F32.9 Major depressive disorder, single episode, unspecified; F12.90 Cannabis use, unspecified, uncomplicated; Z79.899 Other long term (current) drug therapy; Z23 Encounter for immunization; Z87.891 Personal history of nicotine dependence; Y92.89 Other specified places as the place of occurrence of the external cause
CPT/HCPCS: 36415; 71045; 74176; 74177; 80048; 80053; 81003; 82948; 83605; 83735; 84145; 85025; 85610; 85730; 87040; 87081; 96365; 96366; 96375; 96376; 99285; A4421; A4618; A7000; C9399; G0378; J0330; J0690; J0696; J1170; J1885; J2001; J2060; J2250; J2270; J2405; J2704; J3010; J7030; J7120; Q2037; Q9963; Q9967; Z7610

== ENCOUNTER 2019-03-31 05:28 | Day surgery (SDC) | payer MEDICAID ==
[~2019-03-31] VITALS: Ht 162.6 cm; Wt 65.8 kg
[~2019-03-31 05:28] MED LIST changes: -ACET-2971 PO; +ASPI-611 PO; +DIAZ5TAB5 PO; -DICLOFENAC GEL TP; +HYDR-3972 PO; -HYDR-4353 PO; +MELA3TAB64 PO; +PANT40TA4 PO; -[UNRECOGNIZED DRUG - CODE]; +ringers solution, lacted 1,000 ML IV SCH
[2019-03-31 05:30] VITALS: BP 123/71
[2019-03-31] MEDS ORDERED: cefazolin/dext.iso 2gm/100ml 50 ML IV ONE (05:30)
[2019-03-31] MEDS ORDERED: famotidine 10mg tablet PO ONE (05:30)
[2019-03-31] MEDS ORDERED: LIDOcaine 1% (10mg/ml) 2ml vial ONE (06:06)
[2019-03-31 06:55] LABS: EOSINOPHILS # (AUTO) 0.5 X10'3 (0-0.9); LYMPHOCYTES # (AUTO) 3.2 X10'3 (1.1-4.8); MEAN CORPUSCULAR VOLUME 90.1 FL (78-98); MONOCYTES # (AUTO) 0.5 X10'3 (0-0.9); NEUTROPHILS # (AUTO) 3.2 X10'3 (1.8-7.7)
[2019-03-31 06:57] LABS: BASOPHILS # (AUTO) 0.1 X10'3 (0-0.2); BASOPHILS % (AUTO) 1.3 % (0-1); EOSINOPHILS % (AUTO) 6.9 % (0-6); LYMPHOCYTES % (AUTO) 42.4 % (21-51); MEAN CORPUSCULAR HEMOGLOBIN 30.9 PG (27.0-31.0); MEAN CORPUSCULAR HGB CONC 34.3 g/dL (33.0-36.5); MEAN PLATELET VOLUME 8.2 FL (7.4-10.4); MONOCYTES % (AUTO) 7.1 % (2-12); NEUTROPHILS % (AUTO) 42.3 % (42-75); PRE OP HEMATOCRIT 40.7 % (35.0-45.0); PRE OP HEMOGLOBIN 13.9 g/dL (12.0-16.0); PRE OP PLATELET COUNT 224 X10'3 (140-440); RED BLOOD COUNT 4.52 X10'6 (4.20-5.60); RED CELL DISTRIBUTION WIDTH 13.9 % (11.5-14.5)
[2019-03-31] MEDS ORDERED: ONDA4TAB11 PO (07:00)
[2019-03-31 07:12] LABS: ALBUMIN/GLOBULIN RATIO 1.3 (1.1-1.5); ALKALINE PHOSPHATASE 67 IU/L (46-116); BLOOD UREA NITROGEN 7 MG/DL (7-18); BUN/CREATININE RATIO 7.6 (6.6-38.0); CALCIUM 9.1 MG/DL (8.5-10.1); CHLORIDE 105 MMOL/L (99-107); CREATININE 0.92 MG/DL (0.40-0.90); PRE OP ALT 19 U/L (30-65); PRE OP ANION GAP 7 (8-16); PRE OP AST 16 U/L (10-37); PRE OP BILIRUB, TOTAL 0.4 MG/DL (0.0-1.0); PRE OP GLUCOSE 93 MG/DL (70-104); PRE OP POTASSIUM 3.4 MMOL/L (3.4-5.1); PRE OP SODIUM 140 MMOL/L (135-145); TOTAL PROTEIN 7.1 G/DL (6.4-8.2); eGFR 73 ML/MIN
[2019-03-31] MEDS ORDERED: LIDOcaine 1% 30ml preserv. free vial ONE (07:25)
[2019-03-31] MEDS ORDERED: BUPIVACAINE liposomal/PF 13.3 MG/ML vial IM ONE (07:25)
[2019-03-31] MEDS ORDERED: BUPIVAcaine/PF 2.5 mg/ml (0.25%) 30ml vial ONE (07:25)
[2019-03-31 07:32] LABS: HCG SERUM QL NEGATIVE
[2019-03-31] MEDS ORDERED: sevoflurane 250ml liquid IH ONE (08:37)
[2019-03-31] MEDS ORDERED: midazolam 2 mg/2 ml injection ONE (08:44)
[2019-03-31] MEDS ORDERED: fentaNYL/PF 50MCG/1 ML 2ML syringe ONE (08:44)
[2019-03-31] MEDS ORDERED: ringers solution, lacted 1,000 ML IV SCH (08:47)
[2019-03-31] MEDS ORDERED: ondansetron/PF 4mg/2ml inj IV PRN (08:50)
[2019-03-31] MEDS ORDERED: proCHLORperazine 10 MG/2 ml inj IV PRN (08:50)
[2019-03-31] MEDS ORDERED: morphine 4 MG/ML inj SYRINge IV PRN ×2 (08:50)
[2019-03-31] MEDS ORDERED: meperidine/PF 25mg/ml syringe IV PRN ×3 (08:50)
[2019-03-31] MEDS ORDERED: LIDOcaine 2% (20mg/ml) 5ml vial ONE (08:53)
[2019-03-31] MEDS ORDERED: propofol inj 20 ML IV ONE (08:53)
[2019-03-31] MEDS ORDERED: dexamethasone sod phosphate 4mg/ml inj. ONE (08:53)
[2019-03-31] MEDS ORDERED: ondansetron/PF 4mg/2ml inj ONE (09:05)
[2019-03-31 09:35] VITALS: BP 118/60
--- NOTE | 2019-03-31 09:35 | NUR ---
Received from OR via BED, accompanied by Anesthesiologist DR DEAN- and report given by Anesthesiolgist. PATIENT A&OX4, DENIES PAIN, V/S WNL, NEUROVASCULAR CHECKS INTACT, 22 G PIV LUE, SCD ON, DRESSING TO BUTTOCKS CDI
[2019-03-31 09:45] VITALS: BP 103/56
[2019-03-31 09:55] VITALS: BP 111/63
[2019-03-31 10:05] VITALS: BP 116/73
[2019-03-31 10:15] VITALS: BP 112/76
--- NOTE | 2019-03-31 10:15 | NUR ---
PATIENT A&OX4, DENIES PAIN, V/S WNL, NEUROVASCULAR CHECKS INTACT, 22 G PIV LUE D/C, SCD OFF, DRESSING TO BUTTOCKS CDI. I HAVE REVIEWED D/C INSTRUCTIONS WITH PATIENT AND FAMILY AND THEY HAVE VERBALIZED UNDERSTANDING. PATIENT D/C HOME WITH ALL BELONGINGS AND FAMILY GAVE TRANSPORT HOME.
== END 2019-03-31 10:15 | disposition home or self-care (01) ==
LOC: PAS 05:28
PROVIDERS: ATTEND Surgery
DX: K62.4 Stenosis of anus and rectum (principal); F41.9 Anxiety disorder, unspecified; F32.9 Major depressive disorder, single episode, unspecified; Z93.3 Colostomy status; Z87.891 Personal history of nicotine dependence; Z72.89 Other problems related to lifestyle; Z79.899 Other long term (current) drug therapy
CPT/HCPCS: 36415; 45910; 80053; 84703; 85025; A6224; C9290; J1100; J2001; J2250; J2405; J2704; J3010; J3490; A4215; A4618; A6449; A7000; J7120

== ENCOUNTER 2019-04-20 05:48 | Inpatient (IN) | payer MEDICAID ==
[~2019-04-20] VITALS: Ht 162.6 cm; Wt 68.0 kg
[2019-04-20] VITALS (37 sets, daily range): BP systolic 97–151; BP diastolic 50–88
[~2019-04-20 05:48] MED LIST changes: -ALUM35SO TP; -ASPI-611 PO; -ESCI20TA38 PO; +ESCI20TA45 PO; +ONDA-103 PO; +albuterol 2.5 MG/3 ML nebule NEB ONE; +ceFOXitin 2 GM ADDvantage bag 100 ML IV ONE; +famotidine 10mg tablet PO ONE
[2019-04-20] MEDS ORDERED: LIDOcaine 1% (10mg/ml) 2ml vial ONE (06:10)
[2019-04-20 07:03] LABS: BASOPHILS # (AUTO) 0.1 X10'3 (0-0.2); BASOPHILS % (AUTO) 1.1 % (0-1); EOSINOPHILS # (AUTO) 0.6 X10'3 (0-0.9); LYMPHOCYTES # (AUTO) 2.9 X10'3 (1.1-4.8); LYMPHOCYTES % (AUTO) 40.1 % (21-51); MEAN CORPUSCULAR HEMOGLOBIN 30.5 PG (27.0-31.0); MEAN CORPUSCULAR HGB CONC 34.2 g/dL (33.0-36.5); MEAN CORPUSCULAR VOLUME 89.4 FL (78-98); MEAN PLATELET VOLUME 8.1 FL (7.4-10.4); MONOCYTES # (AUTO) 0.7 X10'3 (0-0.9); MONOCYTES % (AUTO) 9.6 % (2-12); NEUTROPHILS # (AUTO) 2.9 X10'3 (1.8-7.7); NEUTROPHILS % (AUTO) 40.2 % (42-75); PRE OP HEMATOCRIT 39.4 % (35.0-45.0); PRE OP HEMOGLOBIN 13.5 g/dL (12.0-16.0); PRE OP PLATELET COUNT 210 X10'3 (140-440); RED CELL DISTRIBUTION WIDTH 13.4 % (11.5-14.5)
[2019-04-20 07:17] LABS: ALBUMIN 3.3 G/DL (3.4-5.0); ALBUMIN/GLOBULIN RATIO 1.2 (1.1-1.5); ALKALINE PHOSPHATASE 57 IU/L (46-116); BLOOD UREA NITROGEN 9 MG/DL (7-18); BUN/CREATININE RATIO 11.3 (6.6-38.0); CALCIUM 8.1 MG/DL (8.5-10.1); CHLORIDE 107 MMOL/L (99-107); PRE OP ALT 16 U/L (30-65); PRE OP ANION GAP 12 (8-16); PRE OP AST 14 U/L (10-37); PRE OP BILIRUB, TOTAL 0.2 MG/DL (0.0-1.0); PRE OP GLUCOSE 87 MG/DL (70-104); PRE OP POTASSIUM 3.6 MMOL/L (3.4-5.1); PRE OP SODIUM 145 MMOL/L (135-145); TOTAL CARBON DIOXIDE 26.3 MMOL/L (24-32); TOTAL PROTEIN 6.1 G/DL (6.4-8.2); eGFR 86 ML/MIN
[2019-04-20] MEDS ORDERED: ringers solution, lacted 1,000 ML IV SCH ×2 (07:21→12:25)
[2019-04-20] MEDS ORDERED: morphine 4 MG/ML inj SYRINge IV PRN (07:25)
[2019-04-20] MEDS ORDERED: labetalol 20mg/4ml (5mg/ml) syringe IV PRN (07:25)
[2019-04-20] MEDS ORDERED: hydrALAZINE 20mg/ml inj. IV PRN (07:25)
[2019-04-20] MEDS ORDERED: ondansetron/PF 4mg/2ml inj IV PRN (07:25)
[2019-04-20] MEDS ORDERED: fentaNYL/PF 50MCG/1 ML 2ML syringe IV PRN ×2 (07:25)
[2019-04-20 07:29] LABS: HCG SERUM QL NEGATIVE
[2019-04-20] MEDS ORDERED: fentaNYL/PF 50MCG/1 ML 2ML syringe ONE (08:14)
[2019-04-20] MEDS ORDERED: midazolam 2 mg/2 ml injection ONE (08:15)
[2019-04-20] MEDS ORDERED: neostigmine methylsulfate 1 MG/ML 10ml vial ONE (08:16)
[2019-04-20] MEDS ORDERED: ondansetron/PF 4mg/2ml inj ONE (08:16)
[2019-04-20] MEDS ORDERED: LIDOcaine 2% (20mg/ml) 5ml vial ONE (08:16)
[2019-04-20] MEDS ORDERED: dexamethasone sod phosphate 4mg/ml inj. ONE (08:16)
[2019-04-20] MEDS ORDERED: propofol inj 20 ML IV ONE (08:16)
[2019-04-20] MEDS ORDERED: glycopyrrolate 0.2mg/ml inj ONE (08:16)
[2019-04-20] MEDS ORDERED: rocuronium 10mg/ml inj IV ONE (08:16)
[2019-04-20] MEDS ORDERED: sevoflurane 250ml liquid IH ONE (08:32)
--- NOTE | 2019-04-20 10:08 | NUR ---
Received from OR via BED, accompanied by Anesthesiologist DR LOUISE and report given by Anesthesiologist. PT DROWSY, SLIGHTLY PAINFUL, ABDOMEN W/FOAM TAPE COVERING INCISION CDI. Addendum: 04/20/19 at 1033 by Sera Pederson RN Amended: Links added.
[2019-04-20] MEDS: morphine 4 MG/ML inj SYRINge IV PRN ×2 (10:17→10:33)
[2019-04-20] MEDS ORDERED: Potassium Cl inj 20 MEQ in ringers solution, lacted 1,000 ML IV SCH (11:14)
[2019-04-20] MEDS ORDERED: naloxone 0.4 mg/ml inj IV PRN (11:15)
[2019-04-20] MEDS ORDERED: HYDROmorphone/NS 1 mg/ml CADD 50 ML IV SCH (11:31)
[2019-04-20] MEDS: ketorolac trometh. 30mg/ml inj. IV PRN (11:46)
--- NOTE | 2019-04-20 12:18 | NUR ---
Report called to receiving nurse. Transferred via BED, 4 BAGS OF PERSONAL Belongings, BLANKET, CRUTCHES SENT W/P TO ROOM 349B, RECEIVING RN AT BEDSIDE TO RECEIVE PT, BLL, CALL LIGHT GIVEN TO PT, SIDE RAILS UP X 2. Special Issues communicated to receiving nurse. YES. Addendum: 04/20/19 at 1234 by Sera Pederson RN Amended: Links added.
[2019-04-20] MEDS: HYDROmorphone/NS 1 mg/ml CADD 50 ML IV SCH ×6 (13:00→23:00)
--- NOTE | 2019-04-20 14:00 | NUR ---
Patient was unable to void after surgery, bladder scan revealed 850 ml's of urine. MD notified with orders to straight cath. Pt. straight catheterized with 825 ml's of urine removed. Pt. tolerated procedure well. Pt. stated she feels better. stated he will review med rec tomorrow but agreed to start the patients escitalopram. Pt. made aware.
--- NOTE | 2019-04-20 15:32 | NUR ---
Patient in room [facility]. I have received report from Sera and had the opportunity to ask questions and assume patient care.
[2019-04-20] MEDS: Potassium Cl inj 20 MEQ in ringers solution, lacted 1,000 ML IV SCH ×2 (15:52→22:39)
[2019-04-20] MEDS: ceFAZolin inj. 1,000 MG in dextrose 5%-water 50ml 50 ML IV SCH ×2 (16:46→23:16)
--- NOTE | 2019-04-20 18:30 | NUR ---
Patient in room [facility]. I have received report from Dana SHEPARD and had the opportunity to ask questions and assume patient care.
--- NOTE | 2019-04-20 18:37 | NUR ---
Problems reprioritized. Patient report given, questions answered & plan of care reviewed with Toshia.
[2019-04-20] MEDS: ESCITALOPRAM OXALATE 5 MG TABLET PO SCH (21:14)
[2019-04-20] MEDS: enoxaparin 30mg/0.3ml syringe SQ SCH (21:14)
[2019-04-20] MEDS: diazepam 5mg tablet PO PRN (21:14)
[2019-04-20] MEDS: Melatonin 3mg tablet PO SCH (21:15)
[2019-04-20] MEDS: gabapentin 400mg capsule PO SCH (21:31)
--- NOTE | 2019-04-20 23:09 | NUR ---
Check with pharmacist about infusing ancef with primary fluid pot cl 20mEq in LR with a dilaudid cadd pump, standard settings. Pharmacist stated that is ok.
[2019-04-21] MEDS: HYDROmorphone/NS 1 mg/ml CADD 50 ML IV SCH ×12 (01:00→23:00)
--- NOTE | 2019-04-21 03:25 | NUR ---
Called MD about patient developing rash to her face and abd/chest pinkish/red in color and mild swelling at this time noted to her face. New order for benadryl 50mg q4hr prn itching/rash
[2019-04-21] MEDS: diphenhydrAMINE 50 mg/ml inj IV PRN ×4 (03:36→18:33)
[2019-04-21] MEDS: Potassium Cl inj 20 MEQ in ringers solution, lacted 1,000 ML IV SCH ×3 (03:40→23:32)
[2019-04-21] MEDS: gabapentin 400mg capsule PO SCH ×3 (06:01→20:40)
--- NOTE | 2019-04-21 06:45 | NUR ---
Problems reprioritized. Patient report given, questions answered & plan of care reviewed with Edwina SHEPARD.
[2019-04-21 07:00] VITALS: BP 141/54
--- NOTE | 2019-04-21 07:12 | NUR ---
Problems reprioritized. Patient report given, questions answered & plan of care reviewed with Toshia SHEPARD. Addendum: 04/21/19 at 0713 by Edwina Burt RN Disregard above, incorrect. Patient in room [facility]. I have received report from Toshia SHEPARD and had the opportunity to ask questions and assume patient care.
--- NOTE | 2019-04-21 07:13 | NUR ---
Upon shift report, CADD setting checks number attempts/given and infused were accidently cleared off of pump on manufacturing shift supervisor, therefore are incorrect on pump. Residual volume is still currently correct at 33.9. Charge nurse notified.
--- NOTE | 2019-04-21 07:13 | NUR ---
During the NOC shift, the cadd machine started recording over from 0033, so the amounts were incorrect. At this time at 1,3 and 5am, I calulated the correct amounts of doses given/attempted by continuing to add from the previous amount at 2300. I calculated the amount of dilaudid given and the amount that remained on these numbers, So that it would continue the doses given to increase and the residual decreasing. EXplained to day nurse and x ray developer what I did as did not know any other way to make correct it.
[2019-04-21] MEDS: enoxaparin 30mg/0.3ml syringe SQ SCH (07:56)
[2019-04-21] MEDS: ceFAZolin inj. 1,000 MG in dextrose 5%-water 50ml 50 ML IV SCH (07:56)
[2019-04-21] MEDS: diazepam 5mg tablet PO PRN ×2 (09:41→20:39)
[2019-04-21] MEDS ORDERED: pantoprazole 40mg Tablet.DR PO ONE (10:27)
[2019-04-21 11:32] VITALS: BP 134/67
[2019-04-21] MEDS ORDERED: fluticasone nasal spray 16GM bottle NS ONE (12:00)
[2019-04-21] MEDS: cetirizine 10mg tablet PO SCH ×2 (12:18→20:40)
--- NOTE | 2019-04-21 18:31 | NUR ---
Problems reprioritized. Patient report given, questions answered & plan of care reviewed with Pelon SHEPARD.
--- NOTE | 2019-04-21 18:35 | NUR ---
Patient in room [facility]. I have received report from ROBINSON SHEPARD and had the opportunity to ask questions and assume patient care.
[2019-04-21 20:00] VITALS: BP 118/61
[2019-04-21] MEDS: fluticasone nasal spray 16GM bottle NS SCH (20:39)
[2019-04-21] MEDS: ESCITALOPRAM OXALATE 5 MG TABLET PO SCH (20:39)
[2019-04-21] MEDS: Melatonin 3mg tablet PO SCH (20:40)
[2019-04-22] VITALS: BP 109/49
[2019-04-22] MEDS: HYDROmorphone/NS 1 mg/ml CADD 50 ML IV SCH ×12 (01:00→23:00)
[2019-04-22] MEDS: ondansetron 4mg rapidly disintigrating tab PO PRN ×3 (04:04→17:05)
[2019-04-22] MEDS: diphenhydrAMINE 50 mg/ml inj IV PRN ×2 (04:04→22:01)
[2019-04-22] MEDS: gabapentin 400mg capsule PO SCH ×3 (05:48→20:10)
--- NOTE | 2019-04-22 06:30 | NUR ---
Problems reprioritized. Patient report given, questions answered & plan of care reviewed with MEENAKSHI RN.
--- NOTE | 2019-04-22 06:57 | NUR ---
Patient in room [facility]. I have received report from Pelon SHEPARD and had the opportunity to ask questions and assume patient care.
[2019-04-22 07:00] VITALS: BP 111/63
[2019-04-22] MEDS: pantoprazole 40mg Tablet.DR PO SCH (07:50)
[2019-04-22] MEDS: cetirizine 10mg tablet PO SCH ×3 (07:50→20:10)
[2019-04-22] MEDS: multivitamins, therapeutics tablet PO SCH (07:51)
[2019-04-22] MEDS: fluticasone nasal spray 16GM bottle NS SCH ×2 (07:51→20:10)
[2019-04-22] MEDS: diazepam 5mg tablet PO PRN ×2 (07:52→18:27)
[2019-04-22] MEDS: Potassium Cl inj 20 MEQ in ringers solution, lacted 1,000 ML IV SCH ×2 (11:32→21:52)
[2019-04-22 12:16] VITALS: BP 134/46
--- NOTE | 2019-04-22 18:30 | NUR ---
Patient in room [facility]. I have received report from DREA Smith and had the opportunity to ask questions and assume patient care.
--- NOTE | 2019-04-22 18:48 | NUR ---
Problems reprioritized. Patient report given, questions answered & plan of care reviewed with Dahiana SHEPARD.
[2019-04-22] MEDS: ESCITALOPRAM OXALATE 5 MG TABLET PO SCH (20:10)
[2019-04-22] MEDS: Melatonin 3mg tablet PO SCH (20:10)
[2019-04-23] VITALS: BP 102/49
[2019-04-23] MEDS: HYDROmorphone/NS 1 mg/ml CADD 50 ML IV SCH ×12 (01:00→23:00)
[2019-04-23] MEDS: gabapentin 400mg capsule PO SCH ×3 (04:16→21:01)
--- NOTE | 2019-04-23 06:25 | NUR ---
Problems reprioritized. Patient report given, questions answered & plan of care reviewed with DREA Smith.
--- NOTE | 2019-04-23 06:30 | NUR ---
Patient in room [facility]. I have received report from Dahiana SHEPARD and had the opportunity to ask questions and assume patient care.
[2019-04-23 07:51] VITALS: BP 109/54
[2019-04-23] MEDS: multivitamins, therapeutics tablet PO SCH (08:09)
[2019-04-23] MEDS: cetirizine 10mg tablet PO SCH ×3 (08:09→21:06)
[2019-04-23] MEDS: pantoprazole 40mg Tablet.DR PO SCH (08:09)
[2019-04-23] MEDS: diazepam 5mg tablet PO PRN ×2 (08:09→17:53)
[2019-04-23] MEDS: fluticasone nasal spray 16GM bottle NS SCH ×2 (08:10→21:03)
[2019-04-23] MEDS: Potassium Cl inj 20 MEQ in ringers solution, lacted 1,000 ML IV SCH ×2 (08:14→19:03)
[2019-04-23 11:00] VITALS: BP 100/56
[2019-04-23 18:00] VITALS: BP 115/70
--- NOTE | 2019-04-23 18:43 | NUR ---
Problems reprioritized. Patient report given, questions answered & plan of care reviewed with Prudence RN.
[2019-04-23] MEDS: ondansetron 4mg rapidly disintigrating tab PO PRN (19:02)
[2019-04-23] MEDS: Melatonin 3mg tablet PO SCH (21:02)
[2019-04-23] MEDS: ESCITALOPRAM OXALATE 5 MG TABLET PO SCH (21:03)
[2019-04-24] VITALS: BP 102/48
[2019-04-24] MEDS: HYDROmorphone/NS 1 mg/ml CADD 50 ML IV SCH ×12 (01:00→23:00)
[2019-04-24] MEDS: gabapentin 400mg capsule PO SCH ×3 (05:08→20:30)
[2019-04-24] MEDS: Potassium Cl inj 20 MEQ in ringers solution, lacted 1,000 ML IV SCH ×2 (05:08→16:35)
--- NOTE | 2019-04-24 06:22 | NUR ---
Patient in room [facility]. I have received report from Alise SHEPARD and had the opportunity to ask questions and assume patient care.
[2019-04-24] MEDS: pantoprazole 40mg Tablet.DR PO SCH (07:40)
[2019-04-24] MEDS: multivitamins, therapeutics tablet PO SCH (07:40)
[2019-04-24] MEDS: fluticasone nasal spray 16GM bottle NS SCH ×2 (07:40→20:28)
[2019-04-24] MEDS: cetirizine 10mg tablet PO SCH ×3 (07:40→20:30)
[2019-04-24] MEDS: diazepam 5mg tablet PO PRN ×2 (07:44→20:33)
[2019-04-24] MEDS: ketorolac trometh. 30mg/ml inj. IV PRN (07:44)
[2019-04-24 08:21] VITALS: BP 108/57
--- NOTE | 2019-04-24 09:55 | NUR ---
Attempted to change patients dressing, patient sleeping at this time, will try again when awake.
[2019-04-24 11:40] LABS: BASOPHILS # (AUTO) 0.1 X10'3 (0-0.2); BASOPHILS % (AUTO) 0.7 % (0-1); EOSINOPHILS # (AUTO) 0.6 X10'3 (0-0.9); EOSINOPHILS % (AUTO) 7.2 % (0-6); HEMATOCRIT 39.4 % (35.0-45.0); HEMOGLOBIN 13.4 g/dl (12.0-16.0); LYMPHOCYTES # (AUTO) 2.3 X10'3 (1.1-4.8); LYMPHOCYTES % (AUTO) 27.8 % (21-51); MEAN CORPUSCULAR HEMOGLOBIN 30.3 PG (27.0-31.0); MEAN CORPUSCULAR VOLUME 89.3 FL (78-98); MEAN PLATELET VOLUME 8.3 FL (7.4-10.4); MONOCYTES # (AUTO) 0.7 X10'3 (0-0.9); MONOCYTES % (AUTO) 8.1 % (2-12); NEUTROPHILS # (AUTO) 4.6 X10'3 (1.8-7.7); NEUTROPHILS % (AUTO) 56.2 % (42-75); PLATELET COUNT 223 X10'3 (140-440); RED BLOOD COUNT 4.42 X10'6 (4.20-5.60); RED CELL DISTRIBUTION WIDTH 13.1 % (11.5-14.5); WHITE BLOOD COUNT 8.1 X10'3 (4.5-11.0)
--- NOTE | 2019-04-24 15:16 | NUR ---
Patient had a VERY SMALL BM, no blood seen. BM was very small formed, yellow/brown in color. Addendum: 04/24/19 at 1517 by Ani Stoddard RN Amended: Links added.
--- NOTE | 2019-04-24 16:31 | NUR ---
Initial: Pt admitted with diverting loop colostomy and rectovaginal fistula. Pt s/p sigmoidoscopy and takedown transverse loop colostomy. Pt currently on clear liquid diet not meeting nutrient needs. Pt has been NPO/Clear liquid for 4 days. Per bedside RN, pt may have diet advanced tomorrow. RD grad intern visited pt at bedside, pt requesting [place] Ensure Enlive, will notify MD once diet advances. LB 04/24. Will continue to monitor. Recommendation: 1. advanced diet as medically indicated to low residue 2. strawberry ensure enlive, will notify MD once diet advanced 3. bowel care as needed 4. weight per rx Addendum: 04/24/19 at 1631 by Wing Everett KHAN Amended: Links added. Addendum: 04/24/19 at 1631 by Ana Maria Lawson RD RD agree with note
--- NOTE | 2019-04-24 18:26 | NUR ---
Problems reprioritized. Patient report given, questions answered & plan of care reviewed with Prudence RN.
--- NOTE | 2019-04-24 18:28 | NUR ---
Patient in room [facility]. I have received report from Ani SHEPARD and had the opportunity to ask questions and assume patient care.
[2019-04-24 19:00] VITALS: BP 98/52
[2019-04-24] MEDS: ESCITALOPRAM OXALATE 5 MG TABLET PO SCH (20:29)
[2019-04-24] MEDS: Melatonin 3mg tablet PO SCH (20:29)
[2019-04-25] VITALS: BP 96/68
[2019-04-25] MEDS: HYDROmorphone/NS 1 mg/ml CADD 50 ML IV SCH ×12 (01:00→23:00)
[2019-04-25] MEDS: Potassium Cl inj 20 MEQ in ringers solution, lacted 1,000 ML IV SCH ×2 (02:25→11:48)
[2019-04-25] MEDS: gabapentin 400mg capsule PO SCH ×3 (05:16→20:33)
--- NOTE | 2019-04-25 06:21 | NUR ---
Problems reprioritized. Patient report given, questions answered & plan of care reviewed with Ani SHEPARD.
[2019-04-25 07:18] VITALS: BP 105/61
--- NOTE | 2019-04-25 07:21 | NUR ---
Patient in room [facility]. I have received report from Alise SHEPARD and had the opportunity to ask questions and assume patient care.
[2019-04-25] MEDS: multivitamins, therapeutics tablet PO SCH (08:09)
[2019-04-25] MEDS: pantoprazole 40mg Tablet.DR PO SCH (08:09)
[2019-04-25] MEDS: fluticasone nasal spray 16GM bottle NS SCH ×2 (08:09→20:32)
[2019-04-25] MEDS: cetirizine 10mg tablet PO SCH ×3 (08:09→20:33)
[2019-04-25] MEDS: diazepam 5mg tablet PO PRN ×2 (11:48→22:04)
--- NOTE | 2019-04-25 12:18 | NUR ---
Follow up: Per MD note diet will be clear liquids until pt passes flatus or has a BM, no flatus or BM yet. She continues to take in clears. Will continue to follow. Initial: Pt admitted with diverting loop colostomy and rectovaginal fistula. Pt s/p sigmoidoscopy and takedown transverse loop colostomy. Pt currently on clear liquid diet not meeting nutrient needs. Pt has been NPO/Clear liquid for 4 days. Per bedside RN, pt may have diet advanced tomorrow. RD product management internship visited pt at bedside, pt requesting [place] Ensure Enlive, will notify MD once diet advances. LBM 04/24. Will continue to monitor. Recommendation: 1. advanced diet as medically indicated when passing flatus/stools to low residue 2. strawberry ensure enlive, will notify MD once diet advanced 3. bowel care as needed 4. weight per rx Addendum: 04/25/19 at [address] RD Amended: Links added.
[2019-04-25 18:00] VITALS: BP 123/56
--- NOTE | 2019-04-25 18:10 | NUR ---
Problems reprioritized. Patient report given, questions answered & plan of care reviewed with Prudence RN.
[2019-04-25] MEDS: ESCITALOPRAM OXALATE 5 MG TABLET PO SCH (20:32)
[2019-04-25] MEDS: Melatonin 3mg tablet PO SCH (20:33)
[2019-04-26] MEDS: Potassium Cl inj 20 MEQ in ringers solution, lacted 1,000 ML IV SCH ×3 (00:06→20:06)
[2019-04-26 00:50] VITALS: BP 93/56
[2019-04-26] MEDS: HYDROmorphone/NS 1 mg/ml CADD 50 ML IV SCH ×12 (01:00→23:00)
[2019-04-26] MEDS: gabapentin 400mg capsule PO SCH ×3 (05:08→21:25)
--- NOTE | 2019-04-26 06:25 | NUR ---
Patient in room [facility]. I have received report from DREA Carrero and had the opportunity to ask questions and assume patient care.
[2019-04-26 06:30] VITALS: BP 101/51
--- NOTE | 2019-04-26 06:33 | NUR ---
Problems reprioritized. Patient report given, questions answered & plan of care reviewed with Cindy RN.
--- NOTE | 2019-04-26 07:00 | NUR ---
CADD assessment check:No residual volume on CADD. It seems when the cartridge was changed the residual volume setting was not cleared & therefore unable to chart on eMAR.
[2019-04-26] MEDS: fluticasone nasal spray 16GM bottle NS SCH ×2 (10:02→21:25)
[2019-04-26] MEDS: pantoprazole 40mg Tablet.DR PO SCH (10:03)
[2019-04-26] MEDS: multivitamins, therapeutics tablet PO SCH (10:03)
[2019-04-26] MEDS: cetirizine 10mg tablet PO SCH ×3 (10:03→21:25)
[2019-04-26] MEDS: ondansetron 4mg rapidly disintigrating tab PO PRN ×2 (10:17→19:21)
[2019-04-26 11:00] VITALS: BP 118/82
[2019-04-26] MEDS: diazepam 5mg tablet PO PRN ×2 (11:33→21:25)
--- NOTE | 2019-04-26 18:05 | NUR ---
Problems reprioritized. Patient report given, questions answered & plan of care reviewed with DREA York.
--- NOTE | 2019-04-26 18:30 | NUR ---
Patient in room [facility]. I have received report from LEANNE and had the opportunity to ask questions and assume patient care. VISITORS AT THE BEDSIDE.
[2019-04-26 19:15] VITALS: BP 102/50
--- NOTE | 2019-04-26 19:20 | NUR ---
PT CONSISTENTLY RATING PAIN 7/10. PT GRIMACING WHILE AT REST, USING TIE CARRIER Q10 MINUTES WITHOUT SIGNIFICANT PAIN RELIEF. DEMAND DOSE INCREASED TO 0.3MG Q 10 MIN, PER TIE CARRIER PROTOCOL ORDERS. WILL CONTINUE TO MONITOR PT.
--- NOTE | 2019-04-26 21:00 | NUR ---
PT STATES PASSING FLATUS PER RECTUM AND VAGINALLY.
[2019-04-26] MEDS: ESCITALOPRAM OXALATE 5 MG TABLET PO SCH (21:26)
[2019-04-26] MEDS: Melatonin 3mg tablet PO SCH (21:29)
[2019-04-26 23:00] VITALS: BP 96/46
[2019-04-27] MEDS: HYDROmorphone/NS 1 mg/ml CADD 50 ML IV SCH ×12 (01:00→23:00)
[2019-04-27] MEDS: gabapentin 400mg capsule PO SCH ×3 (04:36→21:03)
[2019-04-27] MEDS: Potassium Cl inj 20 MEQ in ringers solution, lacted 1,000 ML IV SCH ×2 (04:37→15:01)
[2019-04-27 05:30] LABS: BASOPHILS % (AUTO) 0.6 % (0-1); EOSINOPHILS # (AUTO) 0.6 X10'3 (0-0.9); EOSINOPHILS % (AUTO) 7.9 % (0-6); HEMOGLOBIN 12.8 g/dl (12.0-16.0); LYMPHOCYTES # (AUTO) 2.5 X10'3 (1.1-4.8); LYMPHOCYTES % (AUTO) 36.1 % (21-51); MEAN CORPUSCULAR HEMOGLOBIN 30.2 PG (27.0-31.0); MEAN CORPUSCULAR HGB CONC 33.7 g/dL (33.0-36.5); MEAN CORPUSCULAR VOLUME 89.5 FL (78-98); MEAN PLATELET VOLUME 8.5 FL (7.4-10.4); MONOCYTES # (AUTO) 0.7 X10'3 (0-0.9); MONOCYTES % (AUTO) 9.4 % (2-12); NEUTROPHILS # (AUTO) 3.2 X10'3 (1.8-7.7); PLATELET COUNT 249 X10'3 (140-440); RED BLOOD COUNT 4.25 X10'6 (4.20-5.60)
[2019-04-27 05:42] LABS: ALANINE AMINOTRANSFERASE 15 U/L (12-78); ALBUMIN 3.1 G/DL (3.4-5.0); ALBUMIN/GLOBULIN RATIO 0.9 (1.1-1.5); ALKALINE PHOSPHATASE 60 IU/L (46-116); ANION GAP 4 (8-16); ASPARTATE AMINO TRANSFERASE 14 U/L (10-37); BILIRUBIN,TOTAL 0.3 MG/DL (0.1-1.0); BLOOD UREA NITROGEN 3 MG/DL (7-18); BUN/CREATININE RATIO 3.8 (6.6-38.0); CALCIUM 9.1 MG/DL (8.5-10.1); CHLORIDE 108 MMOL/L (99-107); CREATININE 0.79 MG/DL (0.40-0.90); GLUCOSE 90 MG/DL (70-104); POTASSIUM 3.8 MMOL/L (3.5-5.1); SODIUM 145 MMOL/L (135-145); TOTAL CARBON DIOXIDE 32.6 MMOL/L (24-32); TOTAL PROTEIN 6.5 G/DL (6.4-8.2); eGFR 87 ML/MIN
--- NOTE | 2019-04-27 06:15 | NUR ---
Patient in room [facility]. I have received report from DREA York and had the opportunity to ask questions and assume patient care.
[2019-04-27 06:30] VITALS: BP 93/50
--- NOTE | 2019-04-27 06:32 | NUR ---
Problems reprioritized. Patient report given, questions answered & plan of care reviewed with LEANNE.
[2019-04-27] MEDS: pantoprazole 40mg Tablet.DR PO SCH (08:28)
[2019-04-27] MEDS: multivitamins, therapeutics tablet PO SCH (08:28)
[2019-04-27] MEDS: fluticasone nasal spray 16GM bottle NS SCH ×2 (08:28→21:01)
[2019-04-27] MEDS: cetirizine 10mg tablet PO SCH ×3 (08:28→21:03)
[2019-04-27] MEDS: ondansetron 4mg rapidly disintigrating tab PO PRN ×2 (10:56→21:26)
[2019-04-27] MEDS: diazepam 5mg tablet PO PRN (10:57)
[2019-04-27 11:00] VITALS: BP 93/52
[2019-04-27] MEDS: CADD PCA waste documentation MC PRN (15:27)
--- NOTE | 2019-04-27 18:10 | NUR ---
Problems reprioritized. Patient report given, questions answered & plan of care reviewed with Cierra RN.
[2019-04-27 19:30] VITALS: BP 102/51
[2019-04-27] MEDS: ESCITALOPRAM OXALATE 5 MG TABLET PO SCH (21:01)
[2019-04-27] MEDS: Melatonin 3mg tablet PO SCH (21:02)
[2019-04-27] MEDS: psyllium seed 3.4 gm packet PO SCH (21:04)
[2019-04-28] VITALS (19 sets, daily range): BP systolic 89–120; BP diastolic 41–77
[2019-04-28] MEDS: HYDROmorphone/NS 1 mg/ml CADD 50 ML IV SCH ×12 (01:00→23:00)
[2019-04-28] MEDS: Potassium Cl inj 20 MEQ in ringers solution, lacted 1,000 ML IV SCH ×2 (02:16→12:18)
[2019-04-28] MEDS: gabapentin 400mg capsule PO SCH ×3 (05:04→20:43)
--- NOTE | 2019-04-28 06:50 | NUR ---
Patient in room [facility]. I have received report from Pat RN and had the opportunity to ask questions and assume patient care.
[2019-04-28] MEDS: multivitamins, therapeutics tablet PO SCH (07:38)
[2019-04-28] MEDS: fluticasone nasal spray 16GM bottle NS SCH ×2 (07:38→20:42)
[2019-04-28] MEDS: cetirizine 10mg tablet PO SCH ×3 (07:38→20:43)
[2019-04-28] MEDS: pantoprazole 40mg Tablet.DR PO SCH (07:38)
--- NOTE | 2019-04-28 09:30 | NUR ---
Patient NPO for possible surgery per Dr. Minor. Patient aware currently.
[2019-04-28] MEDS: diazepam 5mg tablet PO PRN ×2 (10:17→20:43)
--- NOTE | 2019-04-28 13:21 | NUR ---
Reassessment: Pt having some flatus per MD note however still no BM since 04/24 per documentation. Pt previously eating well on clear liquid diet however diet has just been changed to NPO pending possible surgery. Pt with increased protein needs r/t surgical wound healing although not able to provide nutrition intervention at this time given NPO status. Will continue to follow closely. Recommendation: 1. Advance to low residue/low fiber diet as medically indicated 2. [place] Ensure Enlive with PO diet advancement if indicated pending trends in PO intake with diet advancement 3. Bowel care as needed 4. Weight per rx Addendum: 04/28/19 at [address] Amended: Links added.
[2019-04-28] MEDS ORDERED: ROPIVAcaine 0.5% (5mg/ml) 30ml vial ONE (14:32)
--- NOTE | 2019-04-28 14:38 | NUR ---
Patient off the unit to OR
[2019-04-28] MEDS ORDERED: ringers solution, lacted 1,000 ML IV SCH (15:16)
[2019-04-28] MEDS ORDERED: morphine 4 MG/ML inj SYRINge IV PRN ×2 (15:20)
[2019-04-28] MEDS ORDERED: proCHLORperazine 10 MG/2 ml inj IV PRN (15:20)
[2019-04-28] MEDS ORDERED: ondansetron/PF 4mg/2ml inj IV PRN (15:20)
[2019-04-28] MEDS ORDERED: meperidine/PF 25mg/ml syringe IV PRN ×3 (15:20)
[2019-04-28] MEDS ORDERED: sevoflurane 250ml liquid IH ONE (15:24)
[2019-04-28] MEDS ORDERED: fentaNYL/PF 50MCG/1 ML 2ML syringe ONE (15:25)
[2019-04-28] MEDS ORDERED: propofol inj 20 ML IV ONE (15:26)
[2019-04-28] MEDS ORDERED: midazolam 2 mg/2 ml injection ONE (15:26)
[2019-04-28] MEDS ORDERED: ceFOXitin 2 GM ADDVANTGE BAG 50 ML IV ONE (15:39)
[2019-04-28] MEDS ORDERED: methylene blue (5mg/ml) 50mg/10ml ampul IV ONE (15:47)
[2019-04-28] MEDS ORDERED: ROPIVAcaine 0.5% (5mg/ml) 30ml vial IJ ONE (15:53)
--- NOTE | 2019-04-28 16:38 | NUR ---
Received from OR via BED , accompanied by Anesthesiologist DR. SANCHEZ and report given by Anesthesiolgist. LMA IN PLACE UPON ARRIVAL, SPONTANEOUS DEEP RESPIRATIONS, LMA REMOVED. AWAKE , SKIN PINK AND WARM. DRESSING INTACT WITH SMALL AMOUNT OF SS DRAINAGE. PIV DEN PATENT.
--- NOTE | 2019-04-28 17:28 | NUR ---
Report called to receiving nurse. Transferred via BED, NO Belongings . Special Issues communicated to receiving nurse.PT AWAKE AND ALERT C/O PAIN AT A LEVEL 7. MOVES ALL EXTREMITIES, SKIN PINK AND WARM, DRSG INTACT WITH SMALL AMOUNT OF SS DRAINAGE. VOIDED 400 ML, PASSING GAS. P[IV DEN INTACT AND RUNNING. PIV SL MAGDA.
--- NOTE | 2019-04-28 17:50 | NUR ---
Pt on the unit from OR.
--- NOTE | 2019-04-28 17:52 | NUR ---
Medications not given, patient to OR and NPO
--- NOTE | 2019-04-28 18:25 | NUR ---
Problems reprioritized. Patient report given, questions answered & plan of care reviewed with Pelon SHEPARD.
--- NOTE | 2019-04-28 18:30 | NUR ---
Patient in room [facility]. I have received report from HARI SHEPARD and had the opportunity to ask questions and assume patient care.
[2019-04-28] MEDS: ESCITALOPRAM OXALATE 5 MG TABLET PO SCH (20:43)
[2019-04-28] MEDS: Melatonin 3mg tablet PO SCH (20:44)
[2019-04-28] MEDS: psyllium seed 3.4 gm packet PO SCH (20:51)
[2019-04-28] MEDS: ondansetron 4mg rapidly disintigrating tab PO PRN (22:02)
[2019-04-29] VITALS: BP 102/48
[2019-04-29] MEDS: HYDROmorphone/NS 1 mg/ml CADD 50 ML IV SCH ×12 (01:00→23:00)
[2019-04-29] MEDS: Potassium Cl inj 20 MEQ in ringers solution, lacted 1,000 ML IV SCH ×3 (03:24→14:37)
[2019-04-29 04:00] VITALS: BP 89/48
[2019-04-29] MEDS: gabapentin 400mg capsule PO SCH ×3 (05:33→20:26)
--- NOTE | 2019-04-29 06:30 | NUR ---
Problems reprioritized. Patient report given, questions answered & plan of care reviewed with HARI SHEPARD.
--- NOTE | 2019-04-29 06:30 | NUR ---
Patient in room [facility]. I have received report from Pelon SHEPARD and had the opportunity to ask questions and assume patient care.
[2019-04-29 07:17] VITALS: BP 92/33
[2019-04-29] MEDS: fluticasone nasal spray 16GM bottle NS SCH ×2 (07:36→20:26)
[2019-04-29] MEDS: cetirizine 10mg tablet PO SCH ×3 (07:37→20:27)
[2019-04-29] MEDS: multivitamins, therapeutics tablet PO SCH (07:37)
[2019-04-29] MEDS: pantoprazole 40mg Tablet.DR PO SCH (07:37)
--- NOTE | 2019-04-29 10:36 | NUR ---
Dr. Minor in to see patient.
[2019-04-29] MEDS: ondansetron 4mg rapidly disintigrating tab PO PRN (13:12)
[2019-04-29] MEDS: diazepam 5mg tablet PO PRN (13:12)
--- NOTE | 2019-04-29 18:15 | NUR ---
Problems reprioritized. Patient report given, questions answered & plan of care reviewed with Pelon SHEPARD.
--- NOTE | 2019-04-29 18:30 | NUR ---
Patient in room [facility]. I have received report from HARI SHEPARD and had the opportunity to ask questions and assume patient care.
[2019-04-29 20:00] VITALS: BP 113/53
[2019-04-29] MEDS: Melatonin 3mg tablet PO SCH (20:27)
[2019-04-29] MEDS: ESCITALOPRAM OXALATE 5 MG TABLET PO SCH (20:27)
[2019-04-29] MEDS: psyllium seed 3.4 gm packet PO SCH (20:28)
[2019-04-30] VITALS: BP 96/47
[2019-04-30] MEDS: HYDROmorphone/NS 1 mg/ml CADD 50 ML IV SCH ×4 (01:00→07:00)
[2019-04-30] MEDS: Potassium Cl inj 20 MEQ in ringers solution, lacted 1,000 ML IV SCH (02:04)
[2019-04-30] MEDS: gabapentin 400mg capsule PO SCH ×2 (05:40→13:03)
--- NOTE | 2019-04-30 06:23 | NUR ---
Problems reprioritized. Patient report given, questions answered & plan of care reviewed with BRANDON SHEPARD.
[2019-04-30 07:06] VITALS: BP 85/41
--- NOTE | 2019-04-30 07:07 | NUR ---
Pt. asymptomatic. Vitals taken after awakening pt. Pt. states her BP usually runs low and from previous documentation this is correct. Sedation vacation initiated with CADD pump. Pt. educated on why. No s/sx bleeding or shock noted. Will reassess and continue to monitor pt's BP on my shift. Addendum: 04/30/19 at 0709 by Elana Pimentel RN Amended: Links added.
[2019-04-30] MEDS: cetirizine 10mg tablet PO SCH ×2 (08:43→13:03)
[2019-04-30] MEDS: pantoprazole 40mg Tablet.DR PO SCH (08:43)
[2019-04-30] MEDS: multivitamins, therapeutics tablet PO SCH (08:43)
[2019-04-30] MEDS: fluticasone nasal spray 16GM bottle NS SCH (08:43)
[2019-04-30] MEDS: diazepam 5mg tablet PO PRN (09:06)
[2019-04-30] MEDS ORDERED: HYDROcodone/acetaminophen 10/325mg tab PO PRN (09:35)
--- NOTE | 2019-04-30 09:40 | NUR ---
Spoke to MD Minor on the phone regaurding diet, bowel sounds, pain relief, CADD pump, IV fluids. See new orders. did not want labs at this time.
[2019-04-30] MEDS: CADD PCA waste documentation MC PRN (10:10)
[2019-04-30 10:58] VITALS: BP 90/43
[2019-04-30 13:02] VITALS: BP 111/61
--- NOTE | 2019-04-30 13:47 | NUR ---
MD Minor aware of purulent discharge from incision during this AMs dressing change.
[2019-04-30] MEDS ORDERED: HYDR-4353 PO (14:09)
--- NOTE | 2019-04-30 15:38 | NUR ---
Pt. discharge in a stable condition. Education and supplies given to pt. regarding wound care for colostomy TD site. Drsg. changed shortly before discharge. Written prescription for [place] given to pt. IV DC'd, bandage applied with no s/sx bleeding noted. Appointment made with the wound care clinic for 1000 am Saturday. Pt. is aware and has contact information for Iván's office and the wound clinic. She knows what s/sx to look for and when to return the ER if necessary. Pt. had an opportunity to ask questions. She left with all of her belongings.
== END 2019-04-30 15:50 | disposition home or self-care (01) | DRG 223 ==
LOC: PAS IN 05:48 → EDSTATUS 08:00 → SUR 3N 12:19
PROVIDERS: ADMIT Surgery; ATTEND Surgery
PROC: 0DSN0ZZ Reposition Sigmoid Colon, Open Approach (ICD-10-PCS; principal; 2019-04-20 08:32)
PROC: 0D7Q8ZZ Dilation of Anus, Via Natural or Artificial Opening Endoscopic (ICD-10-PCS; 2019-04-28)
PROC: 0UQG0ZZ Repair Vagina, Open Approach (ICD-10-PCS; 2019-04-28)
DX: K62.3 Rectal prolapse (principal); K62.4 Stenosis of anus and rectum; N82.3 Fistula of vagina to large intestine
CPT/HCPCS: 36415; 74021; 80053; 82948; 83735; 84703; 85025; 87081; A4618; A6266; A6449; A7000; G0378; J0690; J0694; J1100; J1170; J1200; J1650; J1885; J2001; J2250; J2270; J2405; J2704; J2710; J2795; J3010; J3480; J3490; J7060; J7120; Q9968

== ENCOUNTER 2019-05-04 09:40 | Outpatient (CLI) | payer MEDICAID ==
[~2019-05-04 09:40] MED LIST changes: -HYDR-3972 PO; +HYDR-4353 PO; -albuterol 2.5 MG/3 ML nebule NEB ONE; -ceFOXitin 2 GM ADDvantage bag 100 ML IV ONE; -famotidine 10mg tablet PO ONE; -ringers solution, lacted 1,000 ML IV SCH
[2019-05-04] MEDS ORDERED: LIDOcaine 2% 5ml jelly ONE ×2 (10:00→10:33)
== END 2019-05-04 10:59 | disposition home or self-care (01) ==
LOC: WOUND CARE 09:40
PROVIDERS: ATTEND Surgery
DX: T81.89XA Other complications of procedures, not elsewhere classified, initial encounter (principal); F32.9 Major depressive disorder, single episode, unspecified; F17.200 Nicotine dependence, unspecified, uncomplicated; F41.9 Anxiety disorder, unspecified; Z79.899 Other long term (current) drug therapy; Y92.89 Other specified places as the place of occurrence of the external cause; Y83.8 Other surgical procedures as the cause of abnormal reaction of the patient, or of later complication, without mention of misadventure at the time of the procedure
CPT/HCPCS: A6266; G0463; A4663; A6213

== ENCOUNTER 2019-05-07 10:00 | Outpatient (CLI) | payer MEDICAID ==
[2019-05-07] MEDS ORDERED: LIDOcaine 2% 5ml jelly ONE (10:30)
== END 2019-05-07 10:50 | disposition home or self-care (01) ==
LOC: WOUND CARE 10:00 → EDSTATUS 10:00 → WOUND CARE 10:50
PROVIDERS: ATTEND Surgery
DX: T81.89XD Other complications of procedures, not elsewhere classified, subsequent encounter (principal); F32.9 Major depressive disorder, single episode, unspecified; F17.200 Nicotine dependence, unspecified, uncomplicated; F41.9 Anxiety disorder, unspecified; Z79.899 Other long term (current) drug therapy; Y83.8 Other surgical procedures as the cause of abnormal reaction of the patient, or of later complication, without mention of misadventure at the time of the procedure
CPT/HCPCS: A6266; G0463; A4663; A6213

== ENCOUNTER 2019-05-11 10:04 | Outpatient (CLI) | payer MEDICAID ==
[2019-05-11] MEDS ORDERED: LIDOcaine 2% 5ml jelly ONE (10:49)
== END 2019-05-11 11:06 | disposition home or self-care (01) ==
LOC: WOUND CARE 10:04
PROVIDERS: ATTEND Surgery
DX: T81.89XD Other complications of procedures, not elsewhere classified, subsequent encounter (principal); F32.9 Major depressive disorder, single episode, unspecified; F17.200 Nicotine dependence, unspecified, uncomplicated; F41.9 Anxiety disorder, unspecified; Z79.899 Other long term (current) drug therapy; Y83.8 Other surgical procedures as the cause of abnormal reaction of the patient, or of later complication, without mention of misadventure at the time of the procedure
CPT/HCPCS: G0283; G0463

== ENCOUNTER 2019-05-22 10:05 | Outpatient (CLI) | payer MEDICAID ==
[2019-05-22] MEDS ORDERED: LIDOcaine 2% 5ml jelly ONE (10:28)
== END 2019-05-22 10:35 | disposition home or self-care (01) ==
LOC: WOUND CARE 10:05
PROVIDERS: ATTEND Surgery
DX: T81.89XD Other complications of procedures, not elsewhere classified, subsequent encounter (principal); F32.9 Major depressive disorder, single episode, unspecified; F17.200 Nicotine dependence, unspecified, uncomplicated; F41.9 Anxiety disorder, unspecified; Z79.899 Other long term (current) drug therapy; Y83.8 Other surgical procedures as the cause of abnormal reaction of the patient, or of later complication, without mention of misadventure at the time of the procedure
CPT/HCPCS: G0463

== ENCOUNTER 2020-07-27 11:38 | Day surgery (SDC) | payer MEDICAID ==
[2020-07-27] VITALS (8 sets, daily range): BP systolic 100–119; BP diastolic 49–63
[~2020-07-27] VITALS: Ht 162.6 cm; Wt 135.0 kg
[~2020-07-27 11:38] MED LIST changes: +BUPIVAcaine/PF 2.5 mg/ml (0.25%) 30ml vial ONE; +CETI10TA14 PO; -CETI10TA18 PO; -DIAZ5TAB5 PO; +ESCI20TA39 PO; -ESCI20TA45 PO; -HYDR-4353 PO; +MELA10TA PO; -MELA3TAB64 PO; -ONDA-103 PO; -PANT40TA4 PO; +PANT40TA54 PO; +SENN-25 PO; +cefazolin/dext.iso 2gm/100ml 100 ML IV ONE; +famotidine 20mg tablet PO ONE; +mupirocin 2% ointment 22GM ONE; +ringers solution, lacted 1,000 ML IV SCH
[2020-07-27 12:52] LABS: URINE HCG NEGATIVE (NEG)
[2020-07-27] MEDS ORDERED: ringers solution, lacted 1,000 ML IV SCH (13:50)
[2020-07-27] MEDS ORDERED: proCHLORperazine 10 MG/2 ml inj IV PRN (13:50)
[2020-07-27] MEDS ORDERED: morphine 4 MG/ML inj SYRINge IV PRN (13:50)
[2020-07-27] MEDS ORDERED: morphine 2 MG/ML inj. syringe IV PRN (13:50)
[2020-07-27] MEDS ORDERED: meperidine/PF 25mg/ml syringe IV PRN ×3 (13:50)
[2020-07-27] MEDS ORDERED: ondansetron/PF 4mg/2ml inj IV PRN (13:50)
[2020-07-27] MEDS ORDERED: fentaNYL/PF 50MCG/1 ML 2ML syringe ONE (17:03)
[2020-07-27] MEDS ORDERED: midazolam 1 mg/ML 2ml injection ONE (17:03)
[2020-07-27] MEDS ORDERED: LIDOcaine 1%/PF 5ML 10 MG/ML VIAL ONE (17:04)
[2020-07-27] MEDS ORDERED: propofol inj 20 ML IV ONE (17:04)
[2020-07-27] MEDS ORDERED: sevoflurane 250ml liquid IH ONE (17:07)
[2020-07-27] MEDS ORDERED: BUPIVAcaine/PF 2.5 mg/ml (0.25%) 30ml vial ONE (17:20)
[2020-07-27] MEDS ORDERED: bacitracin 15gm ointment TP ONE (17:20)
[2020-07-27] MEDS ORDERED: ondansetron/PF 4mg/2ml inj ONE (17:32)
[2020-07-27] MEDS ORDERED: dexamethasone sod phosphate 4mg/ml inj. ONE (17:32)
--- NOTE | 2020-07-27 19:15 | NUR ---
Received from OR via BED , accompanied by Anesthesiologist and report given by Anesthesiologist. PATIENT WAKING UP, NO S/S OF PAIN, V/S WNL, SCD ON, 20G TO RUE, RIGHT FOOT SPLINT BOOT W/ DRESSING W/ 4X4 CDI
[2020-07-27] MEDS ORDERED: HYDROcodone/acetaminophen 10/325mg tab PO ONE (20:05)
--- NOTE | 2020-07-27 20:15 | NUR ---
PATIENT A&OX4, DENIES PAIN, V/S WNL, SCD OFF, 20G TO RUE D/C, RIGHT FOOT SPLINT BOOT W/ DRESSING W/ 4X4 CDI. [facility] I HAVE REVIEWED D/C ORDERS WITH PATIENT AND FRIEND AND THEY HAVE VERBALIZED UNDERSTANDING. PATIENT D/C HOME WITH ALL BELONGINGS AND FRIEND GAVE TRANSPORT.
== END 2020-07-27 20:15 | disposition home or self-care (01) ==
LOC: PAS 11:38
PROVIDERS: ATTEND Podiatrist Foot & Ankle Surgery
DX: M20.11 Hallux valgus (acquired), right foot (principal); M21.621 Bunionette of right foot; M25.371 Other instability, right ankle; M79.671 Pain in right foot; M25.571 Pain in right ankle and joints of right foot; G89.18 Other acute postprocedural pain; M54.2 Cervicalgia; M25.471 Effusion, right ankle; S93.401D Sprain of unspecified ligament of right ankle, subsequent encounter; Z72.0 Tobacco use
CPT/HCPCS: 28110; 28297; 64450; 73620; 76000; 76942; 81025; 82948; A6223; C1713; J1100; J2250; J2405; J2704; J3010; J3490; A4618; A6253; A6449; A7000; J7120